=== PATIENT | male | born 1935 | race Caucasian/White ===

== ENCOUNTER 2019-04-14 08:33 | Inpatient (IN) ==
[2019-04-14 09:12] LABS: Basophils # (auto) 0.03 K/uL (0-0.2); Basophils % (auto) 0.2 %; Eosinophils # (auto) 0.16 K/uL (0-0.5); Eosinophils % (auto) 1.3 %; Hematocrit (blood only) 36.1 % (42-52); Hemoglobin 11.9 g/dL (14.0-18.0); Immature Granulocytes # (auto) 0.03 K/uL (0.00-0.02); Immature Granulocytes % (auto) 0.2 %; Mean Corpuscular Hemoglobin 27.9 pg (25-34); Mean Corpuscular Volume 84.5 fL (80-100); Mean Platelet Volume 11.2 fL (7.4-10.4); Monocytes # (auto) 0.64 K/uL (0.11-0.59); Neutrophils # (auto) 10.43 K/uL (1.4-6.5); Neutrophils % (auto) 82.3 %; Platelet Count 275 K/uL (130-400); RDW Coefficient of Variation 16.3 % (11.5-14.5); RDW Standard Deviation 49.4 fL (36.4-46.3); Red Blood Count 4.27 M/uL (4.7-6.1); White Blood Count 12.69 K/uL (4.8-10.8)
--- NOTE | 2019-04-14 09:27 | XRay Report ---
SINGLE VIEW CHEST CLINICAL HISTORY: Atypical chest pain. FINDINGS: An AP, portable, upright chest radiograph is compared to study dated 04/20/2013. The examin ation is degraded by portable technique and patient rotation. The cardiomediastinal silhouette is unr emarkable noting atherosclerotic calcification of the thoracic aorta. There is chronic elevation of t he right hemidiaphragm with bibasilar scarring/atelectasis. Chronic interstitial thickening is simila r to previous. Patchy airspace opacities are identified in the left upper lobe and possibly at the le ft lung base. No large pleural effusion or pneumothorax is seen. The skeletal structures are osteopen ic. The bony thorax is grossly intact. Degenerative change is noted in the shoulders and thoracic spi ne. IMPRESSION: There is patchy airspace consolidation identified in the left upper lobe and possibly at the left lung base. Correlate clinically for evidence of pneumonia/aspiration pneumonitis. Radiograph ic follow-up to resolution is recommended. Electronically signed by: Gigi Gomez M.D. 04/14/2019 9:26 AM
[2019-04-14] MEDS ORDERED: ASPIRIN CHEW 324 MG ONE (09:28)
[2019-04-14] MEDS ORDERED: NITROGLYCERIN SL 0.4 MG/TAB TAB ONE (09:28)
[2019-04-14 09:37] LABS: Albumin Globulin Ratio 0.7 (0.9-2); Albumin Level 2.9 gm/dl (3.4-5.0); BUN Creatinine Ratio 27.8 (10-20); Bilirubin,Total 0.4 mg/dl (0.2-1); Creatinine Clr Calc Pharmacy 45.5 ml/min; Est GFR (African American) 52.4; Est GFR (Non-African American) 45.2; Globulin 4.1 gm/dl (2.5-4.0); Potassium 5.2 mmol/L (3.5-5.1); Troponin I 2.31 ng/ml (0-0.045)
[2019-04-14] MEDS ORDERED: HEPARIN (PORCINE) 1000 UNIT/ML 10 ML (CATH LAB USE ONLY) ONE (09:45)
[2019-04-14] MEDS ORDERED: NiCARDipine HCL INJ 2.5 MG/ML 10 ML AMP ONE (09:45)
[2019-04-14] MEDS ORDERED: fentaNYL citrate 100 MCG/2 ML VIAL ONE (09:45)
[2019-04-14] MEDS ORDERED: MIDAZOLAM HCL 1 MG/ML 2ML VIAL ONE (09:45)
[2019-04-14] MEDS ORDERED: NITROGLYCERIN/D5W 100MCG/ML 20ML SYR ONE (09:46)
[2019-04-14 09:48] LABS: Beta-Hydroxybutyrate 2.79 mg/dl (0.2-2.81)
[2019-04-14] MEDS ORDERED: HEPARIN 25000 UNIT/500 ML D5W IV ONE (10:37)
[2019-04-14] MEDS ORDERED: ICU PROTOCOL FOR HYPERGLYCEMIA PRN ×2 (11:05→12:35)
[2019-04-14] MEDS ORDERED: Heparin IV Low Dose *NO* Bolus IV ONE (11:07)
--- NOTE | 2019-04-14 11:08 | Pre Anesthesia Assessment ---
Date of Service April 14, 2019 Pre Sedation Assessment Vital Signs Temp Pulse Pulse Resp BP BP Pulse Ox 04/14/19 09:59 97.7 F 88 14 105/58 L 97 04/14/19 09:57 87 14 105/58 L 97 04/14/19 09:51 84 14 96 04/14/19 09:50 85 16 103/66 96 04/14/19 09:46 82 82 20 108/59 L 95 04/14/19 09:45 83 13 108/59 L 94 04/14/19 09:42 90 04/14/19 09:41 81 19 108/59 L 94 04/14/19 09:40 84 20 97/62 L 92 04/14/19 09:39 84 26 H 82/56 L 91 04/14/19 09:37 83 16 92 04/14/19 09:36 83 19 89/44 L 93 04/14/19 09:35 85 23 88/45 L 93 04/14/19 09:33 83 18 95 04/14/19 09:32 85 14 118/67 96 04/14/19 09:31 87 17 04/14/19 09:30 78 81 18 113/63 113/63 96 04/14/19 09:25 82 18 96 04/14/19 09:20 82 17 97 04/14/19 09:15 85 15 98 04/14/19 09:10 85 16 97 04/14/19 09:05 81 16 97 04/14/19 09:00 83 16 106/75 98 04/14/19 08:58 94 04/14/19 08:55 79 13 98 04/14/19 08:51 97.7 F 83 18 104/58 L 94 04/14/19 08:50 84 16 97 04/14/19 08:45 84 22 97 04/14/19 08:44 86 19 98 04/14/19 08:41 85 15 122/68 98 Cardiovascular RRR, no murmur, no edema Respiratory normal respiratory effort, lungs clear to auscultation Pre-Sedation Airway Assessment Smoking Status: Never smoker Hx Sleep Apnea: No Hx Difficult Intubation: No Short, Thick Neck: No Thyromental Distance: < 3.5 Finger Breadths Oral Cavity: + WNL Mallampati Class: III ASA: ASA4 Procedure Planning Contraindications for Sedation: none Current Medications Reviewed: Yes Notes The planned sedation has been discussed with the patient. Informed Consent was obtained. I have identified the patient, determined the appropriateness of sedation and have assessed the patient immediately prior to the procedure. All medicine(s) and interventions are by my order.
--- NOTE | 2019-04-14 11:09 | Post Anesthesia Assessment ---
Date of Service April 14, 2019 Post Sedation Assessment Vital Signs Temp Pulse Pulse Resp BP BP Pulse Ox 04/14/19 09:59 97.7 F 88 14 105/58 L 97 04/14/19 09:57 87 14 105/58 L 97 04/14/19 09:51 84 14 96 04/14/19 09:50 85 16 103/66 96 04/14/19 09:46 82 82 20 108/59 L 95 04/14/19 09:45 83 13 108/59 L 94 04/14/19 09:42 90 04/14/19 09:41 81 19 108/59 L 94 04/14/19 09:40 84 20 97/62 L 92 04/14/19 09:39 84 26 H 82/56 L 91 04/14/19 09:37 83 16 92 04/14/19 09:36 83 19 89/44 L 93 04/14/19 09:35 85 23 88/45 L 93 04/14/19 09:33 83 18 95 04/14/19 09:32 85 14 118/67 96 04/14/19 09:31 87 17 04/14/19 09:30 78 81 18 113/63 113/63 96 04/14/19 09:25 82 18 96 04/14/19 09:20 82 17 97 04/14/19 09:15 85 15 98 04/14/19 09:10 85 16 97 04/14/19 09:05 81 16 97 04/14/19 09:00 83 16 106/75 98 04/14/19 08:58 94 04/14/19 08:55 79 13 98 04/14/19 08:51 97.7 F 83 18 104/58 L 94 04/14/19 08:50 84 16 97 04/14/19 08:45 84 22 97 04/14/19 08:44 86 19 98 04/14/19 08:41 85 15 122/68 98 Recovery Score Activity: Moves 4 extremities Respiration: Deep Breath/Cough Circulation: +/-20% PreAnes Value Consciousness: Fully Awake Oxygen Saturation: O2 needed for >90% Discharge Sedation Level of Care: Higher Level of Care Post Sedation Plan On clinical assessment, the patient appears to have tolerated the sedation without complications. Patient is recovering as anticipated. Patient will continue to be monitored by nursing and may be discharged when sedation discharge criteria are met per below protocol. Upon Completions of procedure up to 15 minutes continue every 5 minute vital signs and the P.A.R. score; then discharge to a Phase I or Fast Track to Phase II per the following guidelines: * Discharge Patient to appropriate Phase II area if PAR is 8 or greater or return to pre- procedure baseline. The post - procedure orders will be as directed. * If PAR score is less than 8 or not return to pre-procedure baseline then patient will follow Phase I monitoring till PAR is reached for Phase II. The Phase I may be done in procedure room or may call to secure a Phase I area. * If naloxone or flumazenil are used for reversal, hold in Phase I for continued monitoring from when last reversal dose was given for a minimum of 60 minutes or longer pending the nurse and/or physician discretion of patient condition before discharge to Phase II. Please call the Sedation Physician to re-evaluate and complete post-note for discharge to Phase II area. Do NOT discharge from procedure sedation or Phase 1 until post- sedation evaluation note is complete by procedure /sedation MD Sedation Discharge Instructions to be given to the patient at discharge to home.
[2019-04-14] MEDS ORDERED: GLUCOSE 40% GEL 15 GM TUBE PO PRN (11:11)
[2019-04-14] MEDS ORDERED: DEXTROSE 50% 50 ML SYRINGE IV PRN (11:11)
[2019-04-14] MEDS ORDERED: GLUCAGON FOR INJ 1 MG VIAL SQ PRN (11:11)
[2019-04-14] MEDS ORDERED: CARBOHYDRATES FOR HYPOGLYCEMIA PO PRN (11:11)
[2019-04-14] MEDS ORDERED: GLUCOSE 10 TABS/TUBE PO PRN (11:11)
[2019-04-14] MEDS ORDERED: HEPARIN SODIUM/DEXTROSE 25,000 UNITS/500 ML BAG IV SCH (11:15)
--- NOTE | 2019-04-14 11:19 | Cardiology Consultation ---
Date of Consultation April 14, 2019 Assessment & Plan (1) Coronary arteriosclerosis in [place] artery: (2) Non-STEMI (non-ST elevated myocardial infarction): (3) Seizure disorder: (4) Status post below knee amputation: (5) Status post carotid endarterectomy: (6) CHF (congestive heart failure), NYHA class II: The patient will be admitted to the ICU with an intra-aortic balloon pump. According to our records on [facility] he has been a DNR in the past. I had a long discussion with the patient's . He would be a very difficult operation and his short and long-term prognosis after open heart surgery would be poor. They would like to have him admitted here and stabilized. They are interested in having palliative care see him to help with goals and decisions. I believe that this is not an unreasonable approach to this elderly patient with severe vascular disease. History of Present Illness Attending Physician: Joby Bentley MD History of Present Illness This is an 83-year-old male patient with a history of diabetes, below the knee amputation and previous stroke. Most of his care has been done through his [facility] primary care physician. He was last seen in our practice in 2012. Review of his [facility] chart would indicate no hospital admissions at [facility] facility, so I believe most of his hospital admissions have been through [facility]. According to his who cares for him he has a hospital bed on the first floor of their home. Over the past several weeks he has been difficult to manage because of ongoing chest pain and shortness of breath. He was brought to the emergency department by his . His cardiac troponins were elevated at 2.3 and he was taken to the cardiac catheterization lab for an emergent study. That study revealed severe three-vessel coronary artery disease. An intra-aortic balloon pump was placed. He is now admitted to the ICU. Allergies Allergy/AdvReac Type Severity Reaction Status Date / Time morphine AdvReac Severe NAUSEA Verified 04/14/19 09:37 Home Medications Home Medications Medication Instructions Recorded Confirmed Type carvedilol [Coreg] 3.125 mg PO BID #0 tab 08/31/12 04/14/19 History insulin glargine [Lantus Solostar 12 unit SUBCUT HS #0 vial 08/31/12 04/14/19 History U-100 Insulin] insulin lispro [Humalog KwikPen 2 unit SUBCUT DIRECTED PRN #0 08/31/12 04/14/19 History Insulin] btl melatonin 3 mg PO HS #0 12/19/12 04/14/19 History aspirin [Aspirin Low Dose] 81 mg PO DAILY #0 02/27/13 04/14/19 History levetiracetam [Keppra] 750 mg PO BID #0 tab 04/11/13 04/14/19 History lorazepam [Ativan] 0.25 - 0.5 mg PO HS PRN #0 tab 04/11/13 04/14/19 History atorvastatin [Lipitor] 80 mg PO HS #0 tab 04/18/13 04/14/19 History lisinopril [Prinivil] 5 mg PO QAM #0 tab 04/22/13 04/14/19 History diphenhydramine-acetaminophen 1 tab PO HS PRN 04/14/19 04/14/19 History [Tylenol PM Extra Strength] duloxetine 30 mg PO DAILY 04/14/19 04/14/19 History furosemide [Lasix] 20 mg PO DAILY 04/14/19 04/14/19 History hydrocodone-acetaminophen 1 tab PO Q6H PRN 04/14/19 04/14/19 History metformin 1,000 mg PO DAILY 04/14/19 04/14/19 History ondansetron HCl [Zofran] 4 - 8 mg PO DIRECTED PRN 04/14/19 04/14/19 History Patient History Social History Preferred Language: Cuban Communication Ability: Effective Assistant Bookkeeper Required: No Beliefs That Will Affect Care: None Current Living Situation: Spouse Feels Safe at Home: Yes Smoking Status: Former smoker Hx Alcohol Use: No Hx Substance Use: No Review of Systems Review of Systems: Unobtainable due to reduced consciousness Physical Exam Physical Exam: General: no acute distress and stated age Head: normocephalic, no masses, lesions, tenderness or abnormalities Eyes: conjunctiva are pink and non-injected, sclera clear Neck: supple, no adenopathy, no bruits, normal jugular venous pulse, no hepatojugular reflux Chest: normal shape and normal respiratory effort Lungs: clear to auscultation and percussion Cardiac Exam: - regular rate & rhythm, no murmurs gallops or rubs - normal S1, normal S2 Pulses: 2(+) throughout Abdomen: abdomen soft, non-tender, no abnormal masses and no hepatosplenomegaly Musculoskeletal: no gait disturbance, no joint inflammation, no deforming arthritis Extremities: Left below the knee amputation. Neuro: grossly normal exam Results & Data Vital Signs (Past 12 Hours) Vital Signs Temp Pulse Pulse Resp BP BP Pulse Ox 04/14/19 09:59 36.5 C 88 14 105/58 L 97 04/14/19 09:57 87 14 105/58 L 97 04/14/19 09:51 84 14 96 04/14/19 09:50 85 16 103/66 96 04/14/19 09:46 82 82 20 108/59 L 95 04/14/19 09:45 83 13 108/59 L 94 04/14/19 09:42 90 04/14/19 09:41 81 19 108/59 L 94 04/14/19 09:40 84 20 97/62 L 92 04/14/19 09:39 84 26 H 82/56 L 91 04/14/19 09:37 83 16 92 04/14/19 09:36 83 19 89/44 L 93 04/14/19 09:35 85 23 88/45 L 93 04/14/19 09:33 83 18 95 04/14/19 09:32 85 14 118/67 96 04/14/19 09:31 87 17 04/14/19 09:30 78 81 18 113/63 113/63 96 04/14/19 09:25 82 18 96 04/14/19 09:20 82 17 97 04/14/19 09:15 85 15 98 04/14/19 09:10 85 16 97 04/14/19 09:05 81 16 97 04/14/19 09:00 83 16 106/75 98 04/14/19 08:58 94 04/14/19 08:55 79 13 98 04/14/19 08:51 36.5 C 83 18 104/58 L 94 04/14/19 08:50 84 16 97 04/14/19 08:45 84 22 97 04/14/19 08:44 86 19 98 04/14/19 08:41 85 15 122/68 98 Laboratory Results Laboratory Results - last 24 hr 04/14/19 04/14/1904/14/19 08:45 08:45 08:51 WBC 12.69 H RBC 4.27 L Hgb 11.9 L Hct 36.1 L MCV 84.5 MCH 27.9 MCHC 33.0 RDW Std Deviation 49.4 H RDW Coeff of Roderick 16.3 H Plt Count 275 MPV 11.2 H Immature Gran % (Auto) 0.2 Neut % (Auto) 82.3 Lymph % (Auto) 11.0 [place] % (Auto) 5.0 Eos % (Auto) 1.3 Baso % (Auto) 0.2 Immature Gran # (Auto) 0.03 H Neut # (Auto) 10.43 H Lymph # (Auto) 1.40 [place] # (Auto) 0.64 H Eos # (Auto) 0.16 Baso # (Auto) 0.03 Sodium 135 L Potassium 5.2 H Chloride 100 Carbon Dioxide 26 Anion Gap 9.0 BUN 40 H Creatinine 1.44 H Est Cr Clr Drug Dosing 45.5 Est GFR ( Amer) 52.4 Est GFR (Non-Af Amer) 45.2 BUN/Creatinine Ratio 27.8 H Glucose 365 H* Calcium 9.0 Total Bilirubin 0.4 AST 33 ALT 24 Alkaline Phosphatase 150 H POC Troponin I 1.85 H Troponin I 2.310 H* Total Protein 7.0 Albumin 2.9 L Globulin 4.1 H Albumin/Globulin Ratio 0.7 L Lipase 366 Beta-Hydroxybutyric Acd 2.79 Medications Administered Current Inpatient Medications Heparin Sodium/Dextrose () 1 ea IV ONE ONE; Protocol Stop: 04/14/19 11:08 Heparin Sodium/Dextrose (Heparin Sodium/Dextrose) 25,000 units in 500 mls @ 0.02 mls/hr IV .Q24H [facility]; Protocol Stop: 05/14/19 11:14
--- NOTE | 2019-04-14 11:28 | Cardiac Catheterization ---
[facility] Data: Toolroom Attendant Cardiac Status Clinical evaluation leading to the procedure CAD Presenation: Non STEMI Anginal Classification: CCS IV Heart Failure: No Cardiogenic Shock within 24 Hours: No Cardiac Arrest within 24 Hours: No Imaging Studies Past 6 Months: Yes Stress Studies Past 6 Months: No Diagnostic Physicians Name: Joby Bentley MD Status: Emergency Closure Device Percutaneous Entry Location: Radial Closure Device: Radial Band Recommendations: Medical Therapy and/or Counseling Intraprocedure Events Significant Disection: No Perforation: No Cardiac Cath Procedure Full Procedure Date April 14, 2019 Pre-Procedure Diagnosis Pre-Procedure Diagnosis: Non STEMI AUC Score AUC Score: 8 Post-Procedure Diagnosis Post-Procedure Diagnosis: Severe CAD and Elevated Intracardiac Pressures Procedure(s) Performed Procedure(s) Performed: Coronary Angiography, Left Heart Cath, IABP and Ultrasound Guided Vascular Access Director Validation Joby Bentley MD Gaming Cage Cashier(s) Riya Estimated Blood Loss Estimated Blood Loss: 10 Medication(s) Medication(s): Fentanyl, Heparin, Lidocaine 1%, Nicardipine and Versed Summary of Findings Indication: High-risk ACS Access: 6Fr right radial artery under ultrasound guidance. 8Fr left IN HOME AIDE access under ultrasound guidance. Findings: LM - Calcified 90+% ostial to bifurcation disease. LAD - Calcified, 90% ostial stenosis, moderat proximal disease, 90% mid stenosis at take-off of 2nd diagonal. Diffuse distal mild disease with TIMI2-3 flow. Medium caliber 2nd diagonal with moderate proximal disease. Circumflex - Calcified, small caliber, 95% ostial stenosis. RCA- Calcified, occluded proximally. PDA/PLBs fill retrograde vial left to right collaterals. LVEDP - 27 -- IABP placement -- - Heparin administered - Left IN HOME AIDE access under ultrasound guidance and with micropuncture - IABP placed to level of derrell - Appropriate augmentation at 1:1. Impression: 1. Critical, complex 3 vessel coronary artery disease with ostial left main involvement. - 90+% left main - 90% ostial LAD, mid LAD - 95% ostial circumflex - 100% chronically occluded proximal RCA with left to right collaterals. 2. Elevated LVEDP 27 mmHg Summary: Patient with critical, high risk disease but TIMI2-3 flow throughout coronary system. In the setting of ongoing chest pain, elevated filling pressures an IABP was placed. Chest pain free post procedure. Patient with extensive co-morbidities and unlikely to be a candidate for CABG. Will be admitted to ICU. Further discussion with family/palliative care regarding medical management vs transfer to tertiary center for high risk PCI. Hemodynamics Rest Ao:: 114/50/70 Final Ao: 111/53/75 LV: 110/27 Recommendations Recommendations: Medical Therapy and/or Counseling Specimens Specimens: None Radiation Exposure (mGy) 1060 Contrast (mls) 50 Fluids (cc crystalloids) Fluids (cc crystalloids): 50 Drains Drains: none Anesthesia moderate Procedural Complication(s) None Disposition ICU I attest to the content of the Intraoperative Record and any orders documented therein. Any exceptions are noted below.
--- NOTE | 2019-04-14 12:12 | Emergency Department Note ---
Entered by Gareth Nowak acting as a scribe for Jefe Rose MD History of Present Illness General Chief complaint: Shortness of Breath/Dyspnea Stated complaint: SOB, CHEST DISCOMFORT Time Seen by Provider: 04/14/19 08:41 Source: patient Mode of arrival: ambulatory Limitations: physical limitation (left leg amputation) History of Present Illness Onset (ago): day(s) (last night) Location: chest Severity: similar to prior episodes Pain Consistency: + intermittent Quality: + burning Exacerbated By: + movement Associated symptoms: + denies other symptoms, + shortness of breath and + other (chest pain, shortness of breath) Treatments prior to arrival: other (Vicodin, oxygen) The patient is a 83 year old male who presents to the Emergency Room with complaints of an episode of intermittent chest pain that occurred last night. The patient reports that he started to feel short of breath at 1930 last night. The patient notes that he has had chest pain for a while but that this episode was the worst yet. He notes that it hurts to breath and that he has an associated cough. The patient notes that the pain radiates into his left arm. The patients notes that he was able to fall asleep yesterday but that he was woken up this morning due to the chest pain. The patients reports that when the patient has difficulty breathing, it turns into a panic and his pain is increased through his chest. The patient reports that the chest pain is better the morning versus the night. The patient notes that he feels relief with lying down versus standing. 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 He reports that he has had no issues with weight loss or weight gain. The patient states that that he took Vicodin for the pain this morning as well as Aspirin. The nurse notes that he was started on 2L of O2, and then was increased to 3L. The nurse states that he is currently at 92% on room air. The patient additionally states that he uses Lasix as prescribed by Dr. Wolf. Home Medications Home Medications Medication Instructions Recorded Confirmed Type carvedilol [Coreg] 3.125 mg PO BID #0 tab 08/31/12 04/14/19 History insulin glargine [Lantus Solostar 12 unit SUBCUT HS #0 vial 08/31/12 04/14/19 History U-100 Insulin] insulin lispro [Humalog KwikPen 2 unit SUBCUT DIRECTED PRN #0 08/31/12 04/14/19 History Insulin] btl melatonin 3 mg PO HS #0 12/19/12 04/14/19 History aspirin [Aspirin Low Dose] 81 mg PO DAILY #0 02/27/13 04/14/19 History levetiracetam [Keppra] 750 mg PO BID #0 tab 04/11/13 04/14/19 History lorazepam [Ativan] 0.25 - 0.5 mg PO HS PRN #0 tab 04/11/13 04/14/19 History atorvastatin [Lipitor] 80 mg PO HS #0 tab 04/18/13 04/14/19 History lisinopril [Prinivil] 5 mg PO QAM #0 tab 04/22/13 04/14/19 History diphenhydramine-acetaminophen 1 tab PO HS PRN 04/14/19 04/14/19 History [Tylenol PM Extra Strength] duloxetine 30 mg PO DAILY 04/14/19 04/14/19 History furosemide [Lasix] 20 mg PO DAILY 04/14/19 04/14/19 History hydrocodone-acetaminophen 1 tab PO Q6H PRN 04/14/19 04/14/19 History metformin 1,000 mg PO DAILY 04/14/19 04/14/19 History ondansetron HCl [Zofran] 4 - 8 mg PO DIRECTED PRN 04/14/19 04/14/19 History Allergies Allergy/AdvReac Type Severity Reaction Status Date / Time morphine AdvReac Severe NAUSEA Verified 04/14/19 09:37 Past Med/Surg History Social History Preferred Language: Jordanian Communication Ability: Effective Information Resources Director Required: No Beliefs That Will Affect Care: None Current Living Situation: Spouse Other Information That Helps Us Care for You: No Feels Safe at Home: Yes Safety Concerns: Feels Safe At This Time Smoking Status: Former smoker Hx Alcohol Use: No Hx Substance Use: No Review of Systems See HPI for pertinent positives & negatives. and A total of 10 systems reviewed and were otherwise negative Physical Exam Vital Signs Vital Signs - 24 hr 04/14/19 08:41 04/14/19 08:44 04/14/19 08:45 Temperature Temperature Source Pulse Rate 85 86 84 Pulse Rate [Left Finger] Pulse Rate from SpO2 Sensor 85 85 84 Pulse Rhythm [Left Finger] Respiratory Rate 15 19 22 Respiratory Effort / Characteristics Respiratory Pattern Blood Pressure 122/68 Blood Pressure [Right Arm] Blood Pressure Mean 78 Blood Pressure Mean [Right Arm] Blood Pressure Position [Right Arm] Pulse Oximetry 98 98 97 Oxygen Delivery Method Oxygen Flow Rate Sepsis Recent Fever Within 48 Hours Sepsis New/Unexplained Change in Mental Status Sepsis Action Taken by Nursing Oxygen Flow Rate - Titration Pulse Oximetry Post Tiitration 04/14/19 08:50 04/14/19 08:51 04/14/19 08:55 Temperature 36.5 C Temperature Source Oral Pulse Rate 84 83 79 Pulse Rate [Left Finger] Pulse Rate from SpO2 Sensor 84 81 Pulse Rhythm [Left Finger] Respiratory Rate 16 18 13 Respiratory Effort / Characteristics Respiratory Pattern Blood Pressure 104/58 L Blood Pressure [Right Arm] Blood Pressure Mean 73 Blood Pressure Mean [Right Arm] Blood Pressure Position [Right Arm] Pulse Oximetry 97 94 98 Oxygen Delivery Method Nasal Cannula Oxygen Flow Rate 2 Sepsis Recent Fever Within 48 Hours No Sepsis New/Unexplained Change in Mental Status No Sepsis Action Taken by Nursing No Action Required Oxygen Flow Rate - Titration Pulse Oximetry Post Tiitration 04/14/19 08:58 04/14/19 09:00 04/14/19 09:05 Temperature Temperature Source Pulse Rate 83 81 Pulse Rate [Left Finger] Pulse Rate from SpO2 Sensor 83 81 Pulse Rhythm [Left Finger] Respiratory Rate 16 16 Respiratory Effort / Characteristics Respiratory Pattern Blood Pressure 106/75 Blood Pressure [Right Arm] Blood Pressure Mean 84 Blood Pressure Mean [Right Arm] Blood Pressure Position [Right Arm] Pulse Oximetry 94 98 97 Oxygen Delivery Method Nasal Cannula Oxygen Flow Rate 2 Sepsis Recent Fever Within 48 Hours Sepsis New/Unexplained Change in Mental Status Sepsis Action Taken by Nursing Oxygen Flow Rate - Titration Pulse Oximetry Post Tiitration 04/14/19 09:10 04/14/19 09:15 04/14/19 09:20 Temperature Temperature Source Pulse Rate 85 85 82 Pulse Rate [Left Finger] Pulse Rate from SpO2 Sensor 86 85 82 Pulse Rhythm [Left Finger] Respiratory Rate 16 15 17 Respiratory Effort / Characteristics Respiratory Pattern Blood Pressure Blood Pressure [Right Arm] Blood Pressure Mean Blood Pressure Mean [Right Arm] Blood Pressure Position [Right Arm] Pulse Oximetry 97 98 97 Oxygen Delivery Method Oxygen Flow Rate Sepsis Recent Fever Within 48 Hours Sepsis New/Unexplained Change in Mental Status Sepsis Action Taken by Nursing Oxygen Flow Rate - Titration Pulse Oximetry Post Tiitration 04/14/19 09:25 04/14/19 09:30 04/14/19 09:31 Temperature Temperature Source Pulse Rate 82 78 87 Pulse Rate [Left Finger] 81 Pulse Rate from SpO2 Sensor 83 Pulse Rhythm [Left Finger] Respiratory Rate 18 18 17 Respiratory Effort / Characteristics Respiratory Pattern Blood Pressure 113/63 Blood Pressure [Right Arm] 113/63 Blood Pressure Mean 87 Blood Pressure Mean [Right Arm] 79 Blood Pressure Position [Right Arm] Pulse Oximetry 96 96 Oxygen Delivery Method Nasal Cannula Oxygen Flow Rate 3 Sepsis Recent Fever Within 48 Hours Sepsis New/Unexplained Change in Mental Status Sepsis Action Taken by Nursing Oxygen Flow Rate - Titration Pulse Oximetry Post Tiitration 04/14/19 09:32 04/14/19 09:33 04/14/19 09:35 Temperature Temperature Source Pulse Rate 85 83 85 Pulse Rate [Left Finger] Pulse Rate from SpO2 Sensor 86 84 85 Pulse Rhythm [Left Finger] Respiratory Rate 14 18 23 Respiratory Effort / Characteristics Respiratory Pattern Blood Pressure 118/67 88/45 L Blood Pressure [Right Arm] Blood Pressure Mean 87 61 Blood Pressure Mean [Right Arm] Blood Pressure Position [Right Arm] Pulse Oximetry 96 95 93 Oxygen Delivery Method Oxygen Flow Rate Sepsis Recent Fever Within 48 Hours Sepsis New/Unexplained Change in Mental Status Sepsis Action Taken by Nursing Oxygen Flow Rate - Titration Pulse Oximetry Post Tiitration 04/14/19 09:36 04/14/19 09:37 04/14/19 09:39 Temperature Temperature Source Pulse Rate 83 83 84 Pulse Rate [Left Finger] Pulse Rate from SpO2 Sensor 83 83 84 Pulse Rhythm [Left Finger] Respiratory Rate 19 16 26 H Respiratory Effort / Characteristics Respiratory Pattern Blood Pressure 89/44 L 82/56 L Blood Pressure [Right Arm] Blood Pressure Mean 59 69 Blood Pressure Mean [Right Arm] Blood Pressure Position [Right Arm] Pulse Oximetry 93 92 91 Oxygen Delivery Method Oxygen Flow Rate Sepsis Recent Fever Within 48 Hours Sepsis New/Unexplained Change in Mental Status Sepsis Action Taken by Nursing Oxygen Flow Rate - Titration Pulse Oximetry Post Tiitration 04/14/19 09:40 04/14/19 09:41 04/14/19 09:42 Temperature Temperature Source Pulse Rate 84 81 Pulse Rate [Left Finger] Pulse Rate from SpO2 Sensor 83 81 Pulse Rhythm [Left Finger] Respiratory Rate 20 19 Respiratory Effort / Characteristics Respiratory Pattern Blood Pressure 97/62 L 108/59 L Blood Pressure [Right Arm] Blood Pressure Mean 70 75 Blood Pressure Mean [Right Arm] Blood Pressure Position [Right Arm] Pulse Oximetry 92 94 90 Oxygen Delivery Method Nasal Cannula Nasal Cannula Oxygen Flow Rate 3 2 Sepsis Recent Fever Within 48 Hours Sepsis New/Unexplained Change in Mental Status Sepsis Action Taken by Nursing Oxygen Flow Rate - Titration 3 Pulse Oximetry Post Tiitration 93 04/14/19 09:45 04/14/19 09:46 04/14/19 09:50 Temperature Temperature Source Pulse Rate 83 82 85 Pulse Rate [Left Finger] 82 Pulse Rate from SpO2 Sensor 84 82 84 Pulse Rhythm [Left Finger] Regular Respiratory Rate 13 20 16 Respiratory Effort / Characteristics Spontaneous SOB on Exertion Respiratory Pattern Regular Blood Pressure 108/59 L 103/66 Blood Pressure [Right Arm] 108/59 L Blood Pressure Mean 76 78 Blood Pressure Mean [Right Arm] 75 Blood Pressure Position [Right Arm] Lying Pulse Oximetry 94 95 96 Oxygen Delivery Method Nasal Cannula Oxygen Flow Rate 3 Sepsis Recent Fever Within 48 Hours Sepsis New/Unexplained Change in Mental Status Sepsis Action Taken by Nursing Oxygen Flow Rate - Titration Pulse Oximetry Post Tiitration 04/14/19 09:51 04/14/19 09:55 04/14/19 09:57 Temperature Temperature Source Pulse Rate 84 86 Pulse Rate [Left Finger] 87 Pulse Rate from SpO2 Sensor 84 87 Pulse Rhythm [Left Finger] Regular Respiratory Rate 14 13 14 Respiratory Effort / Characteristics Spontaneous SOB on Exertion Respiratory Pattern Regular Blood Pressure 105/58 L Blood Pressure [Right Arm] 105/58 L Blood Pressure Mean 68 Blood Pressure Mean [Right Arm] 73 Blood Pressure Position [Right Arm] Lying Pulse Oximetry 96 97 97 Oxygen Delivery Method Nasal Cannula Oxygen Flow Rate 3 Sepsis Recent Fever Within 48 Hours Sepsis New/Unexplained Change in Mental Status Sepsis Action Taken by Nursing Oxygen Flow Rate - Titration Pulse Oximetry Post Tiitration 04/14/19 09:59 04/14/19 11:50 04/14/19 11:57 Temperature 36.5 C Temperature Source Oral Pulse Rate 88 90 75 Pulse Rate [Left Finger] Pulse Rate from SpO2 Sensor Pulse Rhythm [Left Finger] Respiratory Rate 14 9 L 18 Respiratory Effort / Characteristics Respiratory Pattern Blood Pressure 105/58 L 154/70 H Blood Pressure [Right Arm] Blood Pressure Mean 94 Blood Pressure Mean [Right Arm] Blood Pressure Position [Right Arm] Pulse Oximetry 97 97 Oxygen Delivery Method Nasal Cannula Oxygen Flow Rate 3 Sepsis Recent Fever Within 48 Hours Sepsis New/Unexplained Change in Mental Status Sepsis Action Taken by Nursing Oxygen Flow Rate - Titration Pulse Oximetry Post Tiitration 04/14/19 12:00 04/14/19 12:15 Temperature 36.7 C Temperature Source Pulse Rate 80 77 Pulse Rate [Left Finger] Pulse Rate from SpO2 Sensor 92 H Pulse Rhythm [Left Finger] Respiratory Rate 16 16 Respiratory Effort / Characteristics Respiratory Pattern Blood Pressure Blood Pressure [Right Arm] Blood Pressure Mean Blood Pressure Mean [Right Arm] Blood Pressure Position [Right Arm] Pulse Oximetry 86 L 97 Oxygen Delivery Method Oxygen Flow Rate Sepsis Recent Fever Within 48 Hours Sepsis New/Unexplained Change in Mental Status Sepsis Action Taken by Nursing Oxygen Flow Rate - Titration Pulse Oximetry Post Tiitration General:Chronically-ill appearing older male in no acute distress. Supplemental oxygen. HEENT: Normal cephalic atraumatic. Pupils are equal round and reactive to light. Extraocular movements are intact. Oropharynx is pink with moist mucous membranes. No swelling of the mouth lips or tongue. Neck: Supple with a midline trachea. No meningeal signs or stiffness, no JVD or bruits. No Stridor. Chest: Clear to auscultation bilaterally. No wheezes or rhonchi. No increased work of breathing. Heart: regular rate and rhythm. Abdomen: Soft nontender, nondistended without rebound guarding or rigidity. Extremities: Artificial lower left leg. No cyanosis clubbing or edema. No calf tenderness Spine/Back. Non tender to palpation. No CVA tenderness Skin: Good turgor without rashes. Neurologic exam: Cranial nerves two through 12 are intact. Motor and sensation are intact and symmetrical throughout. Course Course 0841: The patient was evaluated in room B02. A complete history and physical exam was performed. 0924: I checked up on the patient and he was resting comfortaably. 0946: The patient appears comfortable and Dr. Bentley, cardiology, is at bedside. 0952: The patient agreed to treatment and will be taken to the [facility]. 1040: I consulted Dr. Chen Administered Medications Heparin Sodium/Dextrose (Heparin Sodium/Dextrose) 25,000 units in 500 mls @ 20 mls/hr IV .Q24H [facility]; Protocol Stop: 05/14/19 11:14 Last Admin: 04/14/19 11:30 Dose: 1,000 units/hr, 20 mls/hr Documented by: [id number] Cosigned by: [id number] Insulin Aspart (Novolog Flexpen) 0 units SC ACHS [facility] Stop: 05/14/19 12:59 Last Admin: 04/14/19 13:10 Dose: 5 units Documented by: [id number] Cosigned by: [id number] Insulin Glargine (Lantus Solostar Pen) 12 units SQ HS [facility] Stop: 05/14/19 12:59 Last Admin: 04/14/19 13:06 Dose: 12 units Documented by: [id number] Cosigned by: [id number] Discontinued Medications Aspirin (Aspirin) Confirm Administered Dose 324 mg .ROUTE .STK-MED ONE Stop: 04/14/19 09:29 Last Admin: 04/14/19 09:28 Dose: 324 mg Documented by: [id number] Fentanyl Citrate (Fentanyl Citrate) Confirm Administered Dose 100 mcg .ROUTE .STK-MED ONE Stop: 04/14/19 09:46 Last Admin: 04/14/19 12:25 Dose: 50 mcg Documented by: [id number] Heparin Sodium (Porcine) (Heparin Iv Bolus ([facility] [employer] [facility] Use Only)) Confirm Administered Dose 10,000 units .ROUTE .STK-MED ONE Stop: 04/14/19 09:46 Last Admin: 04/14/19 12:26 Dose: 8,000 units Documented by: [id number] Heparin Sodium/Dextrose (Heparin Sodium/Dextrose) Confirm Administered Dose 25,000 units IV .STK-MED ONE Stop: 04/14/19 10:38 Last Admin: 04/14/19 12:51 Dose: Not Given Documented by: [id number] Heparin Sodium/Sodium Chloride (Heparin/Nss 1000 Unit/500ml Flush Bag) Confirm Administered Dose 3,000 units IV .STK-MED ONE Stop: 04/14/19 09:46 Last Admin: 04/14/19 12:27 Dose: 3,000 units Documented by: [id number] Insulin Human Regular 4 units/ (Syringe) 4 mls @ 8 mls/min IV TODAY@1300 ONE Stop: 04/14/19 13:01 Last Admin: 04/14/19 13:06 Dose: 8 mls/min Documented by: [id number] Cosigned by: [id number] Midazolam HCl (Versed) Confirm Administered Dose 2 mg .ROUTE .STK-MED ONE Stop: 04/14/19 09:46 Last Admin: 04/14/19 12:27 Dose: 1 mg Documented by: [id number] Nicardipine HCl (Cardene) Confirm Administered Dose 25 mg .ROUTE .STK-MED ONE Stop: 04/14/19 09:46 Last Admin: 04/14/19 12:22 Dose: 25 mg Documented by: [id number] Nitroglycerin (Nitrostat) Confirm Administered Dose 0.4 mg .ROUTE .STK-MED ONE Stop: 04/14/19 09:29 Last Admin: 04/14/19 09:30 Dose: 0.4 mg Documented by: [id number] Nitroglycerin/Dextrose (Nitroglycerin/D5w 100 Mcg/Ml 20ml Syringe) Confirm Admin istered Dose 2,000 mcg .ROUTE .STK-MED ONE Stop: 04/14/19 09:47 Last Admin: 04/14/19 12:28 Dose: 2,000 mcg Documented by: [id number] Critical Care Time Critical Care Time: Yes Total Critical Care Time: 45 I have personally spent 45 minutes of critical care time in the direct management of this patient. This includes bedside care, interpretation of diagnostic studies, and testing, discussion with consultants, patient, and family members, and other required patient management activities. This 45 minutes is in excess of all separately billable procedures. Medical Decision Making Differential Diagnosis Acute coronary syndrome, CHF, pneumonia, electrolyte imbalance, metabolic abnormalities Medical Records Attestation: I reviewed the patient's medical records. Home Medications Current Medication List: was personally reviewed by me Laboratory Data Attestation: I reviewed the patient's lab results. Result diagrams: 04/14/19 08:45 04/14/19 08:45 Lab Results 04/14/19 04/14/19 04/14/19 Range/Units 08:45 08:45 08:51 WBC 12.69 H (4.8-10.8) K/uL RBC 4.27 L (4.7-6.1) M/uL Hgb 11.9 L (14.0-18.0) g/dL Hct 36.1 L (42-52) % MCV 84.5 (80-100) fL MCH 27.9 (25-34) pg MCHC 33.0 (32-36) g/dL RDW Std Deviation 49.4 H (36.4-46.3) fL RDW Coeff of Roderick 16.3 H (11.5-14.5) % Plt Count 275 (130-400) K/uL MPV 11.2 H (7.4-10.4) fL Immature Gran % (Auto) 0.2 % Neut % (Auto) 82.3 % Lymph % (Auto) 11.0 % Benzie % (Auto) 5.0 % Eos % (Auto) 1.3 % Baso % (Auto) 0.2 % Immature Gran # (Auto) 0.03 H (0.00-0.02) K/uL Neut # (Auto) 10.43 H (1.4-6.5) K/uL Lymph # (Auto) 1.40 (1.2-3.4) K/uL Benzie # (Auto) 0.64 H (0.11-0.59) K/uL Eos # (Auto) 0.16 (0-0.5) K/uL Baso # (Auto) 0.03 (0-0.2) K/uL Sodium 135 L (136-145) mmol/L Potassium 5.2 H (3.5-5.1) mmol/L Chloride 100 (98-107) mmol/L Carbon Dioxide 26 (21-32) mmol/L Anion Gap 9.0 (3-11) BUN 40 H (7-18) mg/dl Creatinine 1.44 H (0.6-1.4) mg/dl Est Cr Clr Drug Dosing 45.5 ml/min Est GFR ( Amer) 52.4 Est GFR (Non-Af Amer) 45.2 BUN/Creatinine Ratio 27.8 H (10-20) Glucose 365 H* (70-99) mg/dl Calcium 9.0 (8.5-10.1) mg/dl Total Bilirubin 0.4 (0.2-1) mg/dl AST 33 (15-37) U/L ALT 24 (12-78) U/L Alkaline Phosphatase 150 H (45-117) U/L POC Troponin I 1.85 H (0-0.045) ng/ml Troponin I 2.310 H* (0-0.045) ng/ml Total Protein 7.0 (6.4-8.2) gm/dl Albumin 2.9 L (3.4-5.0) gm/dl Globulin 4.1 H (2.5-4.0) gm/dl Albumin/Globulin Ratio 0.7 L (0.9-2) Lipase 366 (73-393) U/L Beta-Hydroxybutyric Acd 2.79 (0.2-2.81) mg/dl Imaging Data Radiologist's Impression: Radiology results as stated below per my review and the radiologist's interpretation: SINGLE VIEW CHEST CLINICAL HISTORY: Atypical chest pain. FINDINGS: An AP, portable, upright chest radiograph is compared to study dated 04/20/2013. The examination is degraded by portable technique and patient rotation. The cardiomediastinal silhouette is unremarkable noting atherosclerotic calcification of the thoracic aorta. There is chronic elevation of the right hemidiaphragm with bibasilar scarring/atelectasis. Chronic interstitial thickening is similar to previous. Patchy airspace opacities are identified in the left upper lobe and possibly at the left lung base. No large pleural effusion or pneumothorax is seen. The skeletal structures are osteopenic. The bony thorax is grossly intact. Degenerative change is noted in the shoulders and thoracic spine. IMPRESSION: There is patchy airspace consolidation identified in the left upper lobe and possibly at the left lung base. Correlate clinically for evidence of pneumonia/aspiration pneumonitis. Radiographic follow-up to resolution is recommended. Electronically signed by: Gigi Gomez M.D. 04/14/2019 9:26 AM ECG Data Indication: + chest pain Rate (beats per minute): 82 Rhythm: + normal sinus ECG ST segments: + ST depression (Anterior), + ST elevation (Lead III) and + T- wave inversions (Lateral) Comparison ECG Date: from (04/14/19) Change: the following changes noted (ST elevation in lead III have gotten worse, Diffuse Twave abnotmality persist, concerning for acute ME) Blood Pressure Blood Pressure Findings: Low blood pressure Blood Pressure Disposition: further management by hospitalist [facility] Narrative This patient comes in as described above. He was placed in room B2. He has been getting short of breath at night and had another episode last night that was worse than typical. He was started on oxygen yesterday. He had echo done of his heart about 2 weeks ago by his doctor's office which by report was unremarkable. He may have had some mild chest and arm pain on the left as well although he tells me his chronic left arm pain from a previous stroke and arthritis and he has baseline left arm weakness. He looks well and his symptoms are atypical however his initial EKG was concerning for cardiac disease. An extensive cardiac work-up was obtained the patient remained stable. I did review an old EKG and it several years old but looks markedly different, I am concerned that he has ST depression anteriorly with some elevation inferiorly in one lead. A second EKG was obtained as the patient started feeling that he had symptoms again and it looks more pronounced. I called the heart alert and he was given aspirin 324 mg chewable. Chest x-ray does not show CHF, there is possible mild pneumonia. He was given nitroglycerin which seemed to help his pain though his pressure dropped into the 90s temporarily. It came up with some fluids. The patient looks well but is going to the [facility] for emergent cath and possible angioplasty and I am concerned that he may be having acute ME. Impression & Plan Acute ME, Hypertension, Shortness of breath, Chest pain, Weakness of left side of body Discharge Plan Visit Data Chief Complaint: Shortness of Breath/Dyspnea Stated Complaint: SOB, CHEST DISCOMFORT ED Provider: Jefe Rose Discharge Problem: Acute ME, Hypertension, Shortness of breath, Chest pain, Weakness of left side of body Discharge Instructions Interventions: ED Discharge Assessment Last Done: 04/14/19 09:59 Discharge Problem: Acute ME Qualifiers: Myocardial infarction type: unspecified Involved coronary artery: unspecified coronary artery Qualified Code(s): I21.9 - Acute myocardial infarction, unspecified Hypertension Qualifiers: Hypertension type: unspecified Qualified Code(s): I10 - Essential (primary) hypertension Chest pain Qualifiers: Chest pain type: chest pain due to myocardial ischemia Ischemic chest pain type: unstable angina pectoris Qualified Code(s): I20.0 - Unstable angina The scribe's documentation has been prepared under my direction and personally reviewed by me in its entirety. I confirm that the note above accurately reflects all work, treatment, procedures, and medical decision making performed by me.
[2019-04-14] MEDS ORDERED: LORazepam 0.5 MG TAB PO PRN (12:21)
[2019-04-14] MEDS ORDERED: INSULIN GLARGINE SOLOSTAR 100 UNITS/ML 3 ML PEN SQ SCH ×2 (13:00→21:00)
[2019-04-14] MEDS ORDERED: INSULIN HUMAN REGULAR PER UNIT 4 UNITS in SYRINGE 3.96 ML IV ONE (13:00)
[2019-04-14] MEDS: INSULIN ASPART 100 UNITS/ML 3 ML PEN SC SCH ×3 (13:10→20:43)
--- NOTE | 2019-04-14 13:59 | History and Physical Report ---
DATE OF ADMISSION: 04/14/2019 CHIEF COMPLAINT: Non-ST elevated [place]. HISTORY OF PRESENT ILLNESS: This is an 83-year-old male with past medical history significant for diabetes, CAD, history of heart failure with preserved EF, hypertension, history of ischemic right MCA stroke, left hemiparesis, seizure disorder, diabetes - insulin requiring, status post BKA of the left lower extremity, history of tobacco abuse, currently wheelchair bound since 2012, on a hospital bed at home. For the last few nights, he is awaking up with shortness of breath and complained of chest pain and left shoulder pain. He also has left shoulder arthritis. He was requiring his lorazepam, Nyquil and Vicodin to sleep. It is going on for the last few nights and the last night was worse, so he came to the hospital and found to have non-ST elevated KY with a troponin of 2.3. He is status post emergent cardiac cath, which showed severe triple vessel disease. The patient is thought to be not a good candidate for CABG. He is status post intraaortic balloon pump. Currently, since the procedure, his symptoms are much improved. He is feeling better. The plan is to monitor in the ICU and the family to decide for either medical management or transfer to tertiary care center for high-risk PCI. The patient's family seems to keep him here, plan to consult palliative care . As per interventional cardiology if patient stays here to slowly taper off the intraaortic balloon pump and maybe probably requires nitroglycerin paste. Currently resting comfortably and hemodynamically stable. He says he is feeling much better. Denies any shortness of breath now. Denies any chest pain now. Vision is okay. Denies any earaches or sore throat or cough. No recent fever or chills. No abdominal pain. Appetite is good. No dysphagia. Normal bowel and bladder movements. ALLERGIES: MORPHINE. PAST MEDICAL HISTORY: As mentioned above. 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 MEDICATIONS: The patient is on Vicodin 5 mg 1 tablet every 6 hours p.r.n., Keppra 750 mg p.o. b.i.d., Ativan 0.25 to 0.5 mg 3 times a day p.r.n., Lasix 20 mg p.o. daily, nitroglycerin 0.4 mg sublingual p.r.n., Protonix 40 mg p.o. daily, atorvastatin 80 mg p.o. daily, lisinopril 10 mg daily, Zofran 4 mg 1 tablet every 6 hours p.r.n., Cymbalta 30 mg p.o. daily, metformin ER 1000 mg daily, Coreg 3.125 mg b.i.d., Tessalon Perles p.r.n., Humalog 2 units subcutaneous prior to meals depending on blood sugar results - no more than 10 units per day, Lantus 12 units at bedtime, Prozac 40 mg daily, famotidine 20 mg p.o. daily, aspirin 81 mg p.o. daily. FAMILY HISTORY: Significant for mother had arthritis, angina, in sleep. Father had sudden at the age of 71, history of [place]. Brother has COPD, smoker. SOCIAL HISTORY: and lives with his . Quit smoking in 1971, smoked half-pack a day for 15 years. Alcohol rarely. No drug use. REVIEW OF SYMPTOMS: As per HPI. Rest of the review of systems is negative. PHYSICAL EXAMINATION: GENERAL: The patient is of moderate built, currently not in acute distress. VITAL SIGNS: Temperature 36.5, pulse 88, respiratory rate 14, blood pressure 105/58, oxygen 97% on 3 liters. HEENT: No pallor, no icterus. NECK: No JVD, no neck masses, no carotid bruits. CARDIOVASCULAR: S1, S2 heard, regular rate and rhythm, no murmur, no gallop. RESPIRATORY SYSTEM: Normal AP diameter. No accessory muscle use. No wheezing, no crackles. ABDOMEN: Soft, bowel sounds present, nontender. No distention. CENTRAL NERVOUS SYSTEM: Alert and awake and oriented. Obeys simple commands. EXTREMITIES: Status post left below-knee amputation. No edema, no erythema seen. Right wrist cardiac cath site clean and left groin IABP site clean. LABORATORIES DATA: WBC 12.6, hemoglobin 11.9, hematocrit 36.1, platelets 275. Sodium 135, potassium 5.2, chloride 100, bicarbonate 26, BUN 40, creatinine 1.44, serum glucose 365, calcium 9, total bilirubin 0.4, AST 33, ALT 24, alkaline phosphatase 150. Troponin I 2.3, lipase 66. Beta hydroxybutyric acid 2.79. Chest x-ray: Patchy airspace consolidation in the left upper lobe and possibly in the left lung base, correlate clinically for evidence of pneumonia or aspiration pneumonitis. Radiological followup for resolution is recommended. EKG shows normal sinus rhythm, rate of 87, incomplete left bundle branch block, marked ST abnormality in the inferior leads and anterolateral leads. ASSESSMENT AND PLAN: This is an 83-year-old male who presents with chest pain, shortness of breath and found to have non-ST elevated myocardial infarction. 1. Non-ST elevated myocardial infarction. The patient has been having shortness of breath for the last few nights, awakening up from sleep and complaining of shortness of breath and also chest discomfort. He is requiring Vicodin, Ativan, and Nyquil to go to sleep. Last night was severe, so he came to the Emergency Room and found to have non-ST elevated myocardial infarction, status post emergent cardiac catheterization and found to have severe triple vessel disease, status post intraaortic balloon pump, currently he is symptom free. Plan for medical management and palliative care versus complex percutaneous coronary intervention. Right now, the family is leaning towards medical management. Cardiology wanted to observe and monitor in the Intensive Care Unit and slowly taper off his balloon pump and may place him on nitroglycerin paste depending on how he does, currently on IV heparin. Post-cardiac catheterization management as per cardiology. We will continue his home medication of aspirin, statin and Coreg. 2. History of congestive heart failure with preserved ejection fraction, currently Lasix on hold. Received Iv fluids.. We will monitor for any volume overload. He is on Coreg and lisinopril. 3. History of cerebrovascular accident and right carotid endarterectomy,Hx of left hemiparesis on aspirin, statin. 4. History of hypertension. Continue his Coreg, lisinopril. Monitor his blood pressure. 5. History of diabetes. Blood sugars are running high. Didn't receive his meds today . We will continue his Lantus insulin sliding scale and Follow hemoglobin A1c levels, follow his blood sugars. Will give a dose of iv insulin 4 units one dose. Hold his metformin. Glycemic pharmacy consult. 6. History of seizures. Continue his Keppra. 7. Hyperlipidemia. Continue statin. Follow his lipid profile. 8. History left below-knee amputation, on aspirin and statin. On wheelchair since 2012, on a hospital bed at home. 9.Hyperkalemia . potassium 5.2. Receiving insulin. Will follow repeat labs. 10.. Deep venous thrombosis prophylaxis, on IV heparin. 11. Disposition. Close monitoring in intensive care unit. 12. Code status, do not resuscitate as per my discussion with the family. [place]
--- NOTE | 2019-04-14 17:56 | Critical Care Consultation ---
Date of Consultation April 14, 2019 Assessment & Plan (1) On intra-aortic balloon pump assist: Reason Critically Ill: Acute myocardial infarction requiring intra-aortic balloon pump PLAN: Neuro: History of CVA with residual deficits Resp: Dyspnea -Likely related to cardiac disease CV: Triple-vessel disease -Medical optimization weaning intra-aortic balloon pump Fluids/Renal: Mild hyperkalemia at 5.2 -We will monitor in morning may be related to mild hemolysis secondary to balloon pump Elevated creatinine -Continue to monitor ID: Monitor fever curve GI/Nutrition: N.p.o. while laying flat -We will progress diet as tolerated when he is able to sit upright Heme: Anemia DVT prophylaxis: Heparin infusion Endocrine: ICU hyperglycemia protocol Vascular access: Femoral intra-aortic balloon pump, peripheral IVs Code Status: DNR/DNI Patient is critically ill, bout of care consult is ordered. I have started weaning of the balloon pump I have coordinated with Dr. Bentley of Dr. Aguilar to hopefully remove the balloon pump in the next 3 to 4 hours. (2) Admitted to intensive care unit: (3) Weakness of left side of body: (4) Acute WA: (5) CHF (congestive heart failure), NYHA class II: History of Present Illness Attending Physician: Malachi Novoa MD Patient is an 83-year-old male who has significant multiple comorbidities who presents after several week complaint of difficulty breathing. He had elevated troponins and EKG changes was taken to the cardiac [employer] and was found to have triple-vessel disease. Ultimately he was considered to be a high risk patient not an appropriate surgical candidate and the family opts to not pursue advanced PCI at a tertiary care center so a intra-aortic balloon pump was placed to help medically optimized the patient and he was transferred to the ICU for weaning from balloon pump and transition to palliative care with hopeful discharge home. During my evaluation the patient was chest pain-free no shortness of breath, desires to sit up as he is laying flat due to the balloon pump. Allergies Allergy/AdvReac Type Severity Reaction Status Date / Time morphine AdvReac Severe NAUSEA Verified 04/14/19 09:37 Home Medications Home Medications Medication Instructions Recorded Confirmed Type carvedilol [Coreg] 3.125 mg PO BID #0 tab 08/31/12 04/14/19 History insulin glargine [Lantus Solostar 12 unit SUBCUT HS #0 vial 08/31/12 04/14/19 History U-100 Insulin] insulin lispro [Humalog KwikPen 2 unit SUBCUT DIRECTED PRN #0 08/31/12 04/14/19 History Insulin] btl melatonin 3 mg PO HS #0 12/19/12 04/14/19 History aspirin [Aspirin Low Dose] 81 mg PO DAILY #0 02/27/13 04/14/19 History levetiracetam [Keppra] 750 mg PO BID #0 tab 04/11/13 04/14/19 History lorazepam [Ativan] 0.25 - 0.5 mg PO HS PRN #0 tab 04/11/13 04/14/19 History atorvastatin [Lipitor] 80 mg PO HS #0 tab 04/18/13 04/14/19 History lisinopril [Prinivil] 5 mg PO QAM #0 tab 04/22/13 04/14/19 History diphenhydramine-acetaminophen 1 tab PO HS PRN 04/14/19 04/14/19 History [Tylenol PM Extra Strength] duloxetine 30 mg PO DAILY 04/14/19 04/14/19 History furosemide [Lasix] 20 mg PO DAILY 04/14/19 04/14/19 History hydrocodone-acetaminophen 1 tab PO Q6H PRN 04/14/19 04/14/19 History metformin 1,000 mg PO DAILY 04/14/19 04/14/19 History ondansetron HCl [Zofran] 4 - 8 mg PO DIRECTED PRN 04/14/19 04/14/19 History Patient History Social History Preferred Language: Japanese Communication Ability: Effective Rn Anesthetist Required: No Beliefs That Will Affect Care: None Current Living Situation: Spouse Other Information That Helps Us Care for You: No Feels Safe at Home: Yes Safety Concerns: Feels Safe At This Time Smoking Status: Former smoker Hx Alcohol Use: No Hx Substance Use: No Physical Exam Physical Exam: General: Alert. nontoxic. Skin: Warm, dry, Head: Atraumatic Ears, nose, mouth and throat: airway patent Cardiovascular: Normal peripheral perfusion Respiratory: no respiratory distress Gastrointestinal: Non distended Musculoskeletal: No deformity Results & Data Vital Signs (Past 12 Hours) Vital Signs Temp Pulse Pulse Resp BP BP Pulse Ox 04/14/19 17:31 74 15 162/72 H 97 04/14/19 17:15 76 21 155/88 H 98 04/14/19 17:00 75 78 22 142/65 H 155/88 H 98 04/14/19 16:01 36.8 C 78 12 134/66 95 04/14/19 16:00 76 134/66 93 04/14/19 15:00 76 76 15 144/66 H 95 04/14/19 14:00 73 72 14 132/71 98 04/14/19 13:26 76 11 L 140/67 96 04/14/19 13:06 36.7 C 80 16 140/67 97 04/14/19 13:00 74 76 12 148/80 H 140/67 96 04/14/19 12:45 79 14 97 04/14/19 12:36 79 154/70 H 97 04/14/19 12:30 77 12 98 04/14/19 12:15 77 16 97 04/14/19 12:00 36.7 C 80 16 86 L 04/14/19 11:57 75 18 154/70 H 97 04/14/19 11:50 90 9 L 04/14/19 09:59 36.5 C 88 14 105/58 L 97 04/14/19 09:57 87 14 105/58 L 97 04/14/19 09:55 86 13 105/58 L 97 04/14/19 09:51 84 14 96 04/14/19 09:50 85 16 103/66 96 04/14/19 09:46 82 82 20 108/59 L 95 04/14/19 09:45 83 13 108/59 L 94 04/14/19 09:42 90 04/14/19 09:41 81 19 108/59 L 94 04/14/19 09:40 84 20 97/62 L 92 04/14/19 09:39 84 26 H 82/56 L 91 04/14/19 09:37 83 16 92 04/14/19 09:36 83 19 89/44 L 93 04/14/19 09:35 85 23 88/45 L 93 04/14/19 09:33 83 18 95 04/14/19 09:32 85 14 118/67 96 04/14/19 09:31 87 17 04/14/19 09:30 78 81 18 113/63 113/63 96 04/14/19 09:25 82 18 96 04/14/19 09:20 82 17 97 04/14/19 09:15 85 15 98 04/14/19 09:10 85 16 97 04/14/19 09:05 81 16 97 04/14/19 09:00 83 16 106/75 98 04/14/19 08:58 94 04/14/19 08:55 79 13 98 04/14/19 08:51 36.5 C 83 18 104/58 L 94 04/14/19 08:50 84 16 97 04/14/19 08:45 84 22 97 04/14/19 08:44 86 19 98 04/14/19 08:41 85 15 122/68 98 Laboratory Results 04/14/19 04/14/19 04/14/19 Range/Units 17:39 17:39 16:08 WBC (4.8-10.8) K/uL RBC (4.7-6.1) M/uL Hgb (14.0-18.0) g/dL Hct (42-52) % MCV (80-100) fL MCH (25-34) pg MCHC (32-36) g/dL RDW Std Deviation (36.4-46.3) fL RDW Coeff of Roderick (11.5-14.5) % Plt Count (130-400) K/uL MPV (7.4-10.4) fL Immature Gran % (Auto) % Neut % (Auto) % Lymph % (Auto) % [place] % (Auto) % Eos % (Auto) % Baso % (Auto) % Immature Gran # (Auto) (0.00-0.02) K/uL Neut # (Auto) (1.4-6.5) K/uL Lymph # (Auto) (1.2-3.4) K/uL [place] # (Auto) (0.11-0.59) K/uL Eos # (Auto) (0-0.5) K/uL Baso # (Auto) (0-0.2) K/uL APTT Pending PTT Ratio Pending Sodium (136-145) mmol/L Potassium Pending (3.5-5.1) mmol/L Chloride (98-107) mmol/L Carbon Dioxide (21-32) mmol/L Anion Gap (3-11) BUN (7-18) mg/dl Creatinine (0.6-1.4) mg/dl Est Cr Clr Drug Dosing ml/min Est GFR ( Amer) Est GFR (Non-Af Amer) BUN/Creatinine Ratio (10-20) Glucose (70-99) mg/dl POC Glucose 257 H (70-99) Calcium (8.5-10.1) mg/dl Total Bilirubin (0.2-1) mg/dl AST (15-37) U/L ALT (12-78) U/L Alkaline Phosphatase (45-117) U/L POC Troponin I (0-0.045) ng/ml Troponin I (0-0.045) ng/ml Total Protein (6.4-8.2) gm/dl Albumin (3.4-5.0) gm/dl Globulin (2.5-4.0) gm/dl Albumin/Globulin Ratio (0.9-2) Lipase (73-393) U/L Beta-Hydroxybutyric Acd (0.2-2.81) mg/dl Nasal Screen MRSA (PCR) (Negative) 04/14/19 04/14/19 04/14/19 Range/Units 12:32 12:30 08:51 WBC (4.8-10.8) K/uL RBC (4.7-6.1) M/uL Hgb (14.0-18.0) g/dL Hct (42-52) % MCV (80-100) fL MCH (25-34) pg MCHC (32-36) g/dL RDW Std Deviation (36.4-46.3) fL RDW Coeff of Roderick (11.5-14.5) % Plt Count (130-400) K/uL MPV (7.4-10.4) fL Immature Gran % (Auto) % Neut % (Auto) % Lymph % (Auto) % [place] % (Auto) % Eos % (Auto) % Baso % (Auto) % Immature Gran # (Auto) (0.00-0.02) K/uL Neut # (Auto) (1.4-6.5) K/uL Lymph # (Auto) (1.2-3.4) K/uL [place] # (Auto) (0.11-0.59) K/uL Eos # (Auto) (0-0.5) K/uL Baso # (Auto) (0-0.2) K/uL APTT PTT Ratio Sodium (136-145) mmol/L Potassium (3.5-5.1) mmol/L Chloride (98-107) mmol/L Carbon Dioxide (21-32) mmol/L Anion Gap (3-11) BUN (7-18) mg/dl Creatinine (0.6-1.4) mg/dl Est Cr Clr Drug Dosing ml/min Est GFR ( Amer) Est GFR (Non-Af Amer) BUN/Creatinine Ratio (10-20) Glucose (70-99) mg/dl POC Glucose 328 H* (70-99) Calcium (8.5-10.1) mg/dl Total Bilirubin (0.2-1) mg/dl AST (15-37) U/L ALT (12-78) U/L Alkaline Phosphatase (45-117) U/L POC Troponin I 1.85 H (0-0.045) ng/ml Troponin I (0-0.045) ng/ml Total Protein (6.4-8.2) gm/dl Albumin (3.4-5.0) gm/dl Globulin (2.5-4.0) gm/dl Albumin/Globulin Ratio (0.9-2) Lipase (73-393) U/L Beta-Hydroxybutyric Acd (0.2-2.81) mg/dl Nasal Screen MRSA (PCR) Negative (Negative) 04/14/19 04/14/19 Range/Units 08:45 08:45 WBC 12.69 H (4.8-10.8) K/uL RBC 4.27 L (4.7-6.1) M/uL Hgb 11.9 L (14.0-18.0) g/dL Hct 36.1 L (42-52) % MCV 84.5 (80-100) fL MCH 27.9 (25-34) pg MCHC 33.0 (32-36) g/dL RDW Std Deviation 49.4 H (36.4-46.3) fL RDW Coeff of Roderick 16.3 H (11.5-14.5) % Plt Count 275 (130-400) K/uL MPV 11.2 H (7.4-10.4) fL Immature Gran % (Auto) 0.2 % Neut % (Auto) 82.3 % Lymph % (Auto) 11.0 % [place] % (Auto) 5.0 % Eos % (Auto) 1.3 % Baso % (Auto) 0.2 % Immature Gran # (Auto) 0.03 H (0.00-0.02) K/uL Neut # (Auto) 10.43 H (1.4-6.5) K/uL Lymph # (Auto) 1.40 (1.2-3.4) K/uL [place] # (Auto) 0.64 H (0.11-0.59) K/uL Eos # (Auto) 0.16 (0-0.5) K/uL Baso # (Auto) 0.03 (0-0.2) K/uL APTT PTT Ratio Sodium 135 L (136-145) mmol/L Potassium 5.2 H (3.5-5.1) mmol/L Chloride 100 (98-107) mmol/L Carbon Dioxide 26 (21-32) mmol/L Anion Gap 9.0 (3-11) BUN 40 H (7-18) mg/dl Creatinine 1.44 H (0.6-1.4) mg/dl Est Cr Clr Drug Dosing 45.5 ml/min Est GFR ( Amer) 52.4 Est GFR (Non-Af Amer) 45.2 BUN/Creatinine Ratio 27.8 H (10-20) Glucose 365 H* (70-99) mg/dl POC Glucose (70-99) Calcium 9.0 (8.5-10.1) mg/dl Total Bilirubin 0.4 (0.2-1) mg/dl AST 33 (15-37) U/L ALT 24 (12-78) U/L Alkaline Phosphatase 150 H (45-117) U/L POC Troponin I (0-0.045) ng/ml Troponin I 2.310 H* (0-0.045) ng/ml Total Protein 7.0 (6.4-8.2) gm/dl Albumin 2.9 L (3.4-5.0) gm/dl Globulin 4.1 H (2.5-4.0) gm/dl Albumin/Globulin Ratio 0.7 L (0.9-2) Lipase 366 (73-393) U/L Beta-Hydroxybutyric Acd 2.79 (0.2-2.81) mg/dl Nasal Screen MRSA (PCR) (Negative) Coding Level of Care Code Critical Care 1st 30-74 mins Diagnoses On intra-aortic balloon pump assist Z98.890 Admitted to intensive care unit Z78.9 Weakness of left side of body R53.1 Acute [place] I21.9 Involved coronary artery: unspecified coronary artery Myocardial infarction type: unspecified CHF (congestive heart failure), NYHA class II I50.9 Time Spent (min) 50 Comment I have personally spent 50 minutes of critical care time in the direct management of this patient. This is a life/limb threatening event. This includes time spent evaluating patient, direct bedside care, chart review, placing orders, interpretation of diagnostic studies, discussion with consultants, patient, and/or family members regarding treatment decisions, as well as other required patient management activities. This time is exclusive of all separately billable procedures, and teaching time and separate from and in addition to any other critical care service time. (1) Acute [place] Involved coronary artery: unspecified coronary artery Myocardial infarction type: unspecified Qualified Code(s): I21.9 - Acute myocardial infarction, unspecified
[2019-04-14] MEDS ORDERED: PHARMACY GLYCEMIC MGMT CONSULT PRN (18:02)
[2019-04-14] MEDS: FUROSEMIDE 20 MG TAB PO SCH (18:02)
[2019-04-14] MEDS ORDERED: NITROGLYCERIN 2% OINTMENT 30GM TUBE ONE (18:08)
[2019-04-14 18:09] LABS: Partial Thromboplastin Ratio 3.3
[2019-04-14 18:11] LABS: Partial Thromboplastin Time 89.4 Seconds (21.0-31.0)
[2019-04-14] MEDS ORDERED: NITROGLYCERIN 2% OINTMENT 30GM TUBE EXT ONE (18:13)
[2019-04-14] MEDS ORDERED: INSULIN ASPART 100 UNITS/ML 3 ML PEN SC ONE (18:45)
--- NOTE | 2019-04-14 19:46 | Pharmacy Report ---
Glycemic Control Consultation - Date of Service April 14, 2019 - Scope Scope: Glycemic Pharmacist consulted by Dr Novoa on 04/14/19 for glycemic control and to write orders per [facility] inpatient glycemic control protocol - Objective Weight: 92.9 kg Accuchecks BSG (last 24hrs): 04/14/19 04/14/19 04/14/19 08:45 12:32 16:08 Glucose 365 H* POC Glucose 328 H* 257 H Laboratory Data (last 24hrs): 04/14/19 04/14/19 08:45 17:39 Potassium 5.2 H 4.0 D Carbon Dioxide 26 Anion Gap 9.0 Creatinine 1.44 H Est Cr Clr Drug Dosing 45.5 Beta-Hydroxybutyric Acd 2.79 - Recent Pertinent Medications Outpatient Anti-diabetic Regimen: * Lantus 12 units HS * Humalog sliding scale insulin (does not take regularly) * Metformin 1000 mg PO daily * A1c ordered for tomorrow AM The patient is currently receiving: * Basal insulin: Lantus 12 units daily * Correctional Insulin: Novolog Correction per scale ACHS Goal Range: Low 140 mg/dL - High 180 mg/dL Correction Factor: 30 mg/dL/unit * Prandial insulin: Per carb ratio of 1 unit per 12 grams CHO consumed Risk Factors for Insulin Resistance: * IVF: Heparin gtt currently @17 mL/hr * Recent Surgery: POD #0 s/p intra-aortic balloon insertion * Diet: T2DM - Assessment & Plan Assessment & Plan: ASSESSMENT: * RH is an 83 year old male s/p intra-aortic balloon pump insertion following NSTEMI this morning (04/14) * Balloon pump to be slowly tapered off * PMH includes CAD, CHF, seizure disorder, history of CVA and BKA * BSG following surgery was 328 mg/dL * At that time - patient received 12 units of Lantus, 4 units of IV regular insulin, and 5 units of Novolog * BSG trended down to 257 mg/dL at dinner - pharmacy consulted at this time * Heparin gtt currently running at 17 mL/hr PLAN FOR INPATIENT GLYCEMIC CONTROL: * Holding outpatient oral diabetes medications * Basal insulin * Lantus 12 units (given at lunch) * Will reassess basal in AM * Bolus insulin - tighten all parameters starting at HS * NovoLog per scale ACHS or Q6hrs while NPO * Goal Range: Low 120 mg/dL - High 160 mg/dL * Correction Factor: 20 mg/dL/unit * Nutritional / Prandial insulin per carb ratio of 1 unit per 7 grams CHO consumed * Will add ,04 checks with same parameters * Please note that the plan above was derived based on current level of insulin resistance and hospital stress. These recommendations are appropriate for inpatient admission only. Plan of care upon discharge will need to be reassessed to avoid potential outpatient hypo/hyperglycemia. Thank you.
[2019-04-14] MEDS: ATORVASTATIN 40 MG TAB PO SCH (20:44)
[2019-04-14] MEDS: levETIRAcetam 250 MG TAB PO SCH (20:45)
[2019-04-14] MEDS: carvediloL 3.125 MG TAB PO SCH (20:45)
[2019-04-14] MEDS ORDERED: ACETAMINOPHEN 500 MG TAB PO PRN (21:00)
--- NOTE | 2019-04-14 23:07 | Communication Note ---
Date of Service: April 14, 2019 Patient stable throughout day on IABP and nitropatch. Chest pain free this afternoon on IABP at 1:2. Decision made to forgo eval for complex PCI with goal of heading home. After discussion with Dr. Jacob decision to remove IABP. IABP removed without difficulty. Hemostasis after manual hold.
[2019-04-15] MEDS: INSULIN ASPART 100 UNITS/ML 3 ML PEN SC SCH ×6 (00:02→21:01)
[2019-04-15] MEDS: HYDROCODONE/ACETAMOPHEN 5/325MG TAB PO PRN ×2 (00:47→07:36)
[2019-04-15 05:32] LABS: Basophils # (auto) 0.02 K/uL (0-0.2); Basophils % (auto) 0.2 %; Eosinophils # (auto) 0.19 K/uL (0-0.5); Hematocrit (blood only) 35.2 % (42-52); Hemoglobin 11.5 g/dL (14.0-18.0); Immature Granulocytes # (auto) 0.03 K/uL (0.00-0.02); Immature Granulocytes % (auto) 0.3 %; Lymphocytes # (auto) 1.45 K/uL (1.2-3.4); Lymphocytes % (auto) 15.3 %; Mean Corpuscular Hemoglobin 27.9 pg (25-34); Mean Corpuscular Hgb Conc 32.7 g/dL (32-36); Mean Corpuscular Volume 85.4 fL (80-100); Mean Platelet Volume 10.8 fL (7.4-10.4); Monocytes # (auto) 0.83 K/uL (0.11-0.59); Monocytes % (auto) 8.8 %; Neutrophils # (auto) 6.95 K/uL (1.4-6.5); Neutrophils % (auto) 73.4 %; Platelet Count 208 K/uL (130-400); RDW Coefficient of Variation 16.4 % (11.5-14.5); RDW Standard Deviation 50.8 fL (36.4-46.3); Red Blood Count 4.12 M/uL (4.7-6.1); White Blood Count 9.47 K/uL (4.8-10.8)
[2019-04-15 06:00] LABS: BUN Creatinine Ratio 31.5 (10-20); Calcium 9.1 mg/dl (8.5-10.1); Creatinine Clr Calc Pharmacy 61.2 ml/min; Est GFR (African American) 75.1; Est GFR (Non-African American) 64.8; Potassium 4.3 mmol/L (3.5-5.1)
[2019-04-15] MEDS ORDERED: CALCIUM CARBONATE 500 MG CHEWABLE TAB PO ONE (07:25)
[2019-04-15] MEDS: DULOXETINE HCL 30 MG CAP PO SCH (08:08)
[2019-04-15] MEDS: levETIRAcetam 250 MG TAB PO SCH ×2 (08:08→20:58)
[2019-04-15] MEDS: ASPIRIN 81 MG ECTAB PO SCH (08:08)
[2019-04-15] MEDS: carvediloL 3.125 MG TAB PO SCH ×2 (08:08→20:56)
[2019-04-15] MEDS: FUROSEMIDE 20 MG TAB PO SCH (08:09)
[2019-04-15] MEDS ORDERED: NITROGLYCERIN 0.3 MG/1 TAB 100 TAB BTL SL PRN (08:10)
[2019-04-15] MEDS: INSULIN GLARGINE SOLOSTAR 100 UNITS/ML 3 ML PEN SQ SCH (08:13)
[2019-04-15] MEDS ORDERED: NITROGLYCERIN SL 0.4 MG/TAB TAB ONE (08:15)
[2019-04-15] MEDS ORDERED: NITROGLYCERIN SL 0.4 MG/TAB TAB SL PRN (08:31)
--- NOTE | 2019-04-15 08:58 | Pharmacy Report ---
Pharmacy Glycemic Short Note 2 - Date of Service April 15, 2019 - Glycemic Short BSG Results (Last 24 hours): 04/14/19 04/14/19 04/14/19 08:45 12:32 16:08 Glucose 365 H* POC Glucose 328 H* 257 H 04/14/19 04/14/19 04/15/19 20:38 23:49 04:04 Glucose POC Glucose 228 H 202 H 218 H 04/15/19 04/15/19 05:23 07:30 Glucose 209 H POC Glucose 178 H OUTPATIENT ANTIDIABETIC REGIMEN: * Lantus 12 units SQ Q 24hrs * Humalog SSI; ~ 2 units with meals * Metformin 1,000mg PO daily * A1c Pending for 04/15/19 ASSESSMENT: * POD # 1 a/p intra-aortic balloon pump insertion following NSTEMI (04/14). PMH includes CAD, CHF, seizure disorder, history of CVA and BKA * Pt with severe hyperglycemia prior to and after surgery. * BSGs trending downwards but still above goal range * Pt has received 31 units of insulin over the past 24hrs * 12 units of basal insulin {Lantus} * 19 units of bolus insulin {NovoLog} * BSGs ranging 178-365 mg/dl * AM fasting BSG is above goal range at 178 mg/dl with 12 units of basal on board + 11 units of correctional insulin over night. Will add the correctional insulin to the basal dose to increase dose to 23 units SQ Q24hrs in AM * Post-prnadial BSGs elevated but CF/CR tightened last night. Have not been able to filly evaluate. Will continue the same and tighten if BSGs consistently > 180 mg/dl * Heparin gtt currently running at 17 mL/hr- base solution is dextrose. May need to taper insulin regimen when this is stopped. * Goal is to maintain BSGs <200 mg/dl (ideally <150 mg/dl) to prevent post op complications PLAN FOR INPATIENT GLYCEMIC CONTROL: * Hold outpatient oral diabetes medications * Basal insulin: increase dosing * Lantus 23 units SQ daily in AM * Bolus insulin: no change * NovoLog per scale ACHS or Q6hrs while NPO * Goal Range: Low 120 mg/dL - High 160 mg/dL {slightly elevated goal range for age and ICU status} * Correction Factor: 15 mg/dL/unit * Nutritional / Prandial insulin per carb ratio of 1 unit per 6 grams CHO consumed PLAN FOR DISCHARGE: * A1c pending for 04/15. DC recs to follow after A1c results. * Goal A1c = >8 % based on age and comorbidities
[2019-04-15] MEDS ORDERED: Heparin IV Standard *NO* Bolus IV ONE (08:59)
[2019-04-15] MEDS ORDERED: lisinopriL 5 MG TAB PO SCH (09:00)
--- NOTE | 2019-04-15 09:06 | Cardiology Progress Note ---
Date of Service April 15, 2019 Assessment & Plan (1) Coronary arteriosclerosis in [place] artery: (2) Non-STEMI (non-ST elevated myocardial infarction): (3) Seizure disorder: (4) Status post below knee amputation: (5) Status post carotid endarterectomy: (6) CHF (congestive heart failure), NYHA class II: The patient is having additional chest pain this morning. His balloon pump was removed last evening. I will restart his heparin. His discomfort was improved with sublingual nitroglycerin and I will add Nitropaste as long as his blood pressure will tolerate. He lists morphine as an allergy due to nausea. We will treat him with fentanyl on an as-needed basis for chest pain. Subjective The patient had the balloon pump removed last evening. He did well through the night until this morning he began to have some chest discomfort. It improved with sublingual nitroglycerin but is still not completely gone. The patient was given p.o. Vicodin. He has an allergy to morphine which is listed as nausea. He denies shortness of breath. He is alert and oriented. Review of Systems Review of Systems: All systems reviewed & are unremarkable except as noted in HPI & below Nothing additional to add Physical Exam Physical Exam: General: no acute distress and stated age Head: normocephalic, no masses, lesions, tenderness or abnormalities Eyes: conjunctiva are pink and non-injected, sclera clear Neck: supple, no adenopathy, no bruits, normal jugular venous pulse, no hepatojugular reflux Chest: normal shape and normal respiratory effort Lungs: clear to auscultation and percussion Cardiac Exam: - regular rate & rhythm, no murmurs gallops or rubs - normal S1, normal S2 Pulses: 2(+) throughout Abdomen: abdomen soft, non-tender, no abnormal masses and no hepatosplenomegaly Musculoskeletal: no gait disturbance, no joint inflammation, no deforming arthritis Extremities: BKA Neuro: grossly normal exam Results & Data Vital Signs (Past 12 Hours) Vital Signs Temp Pulse Resp BP Pulse Ox 04/15/19 08:00 90 04/15/19 06:01 77 16 97 04/15/19 06:00 80 13 91/59 L 97 04/15/19 05:01 80 15 98 04/15/19 05:00 36.5 C 79 14 101/57 L 99 04/15/19 04:01 79 15 98 04/15/19 04:00 36.5 C 78 13 94/57 L 94 04/15/19 03:01 74 16 96 04/15/19 03:00 74 15 97/67 L 97 04/15/19 02:01 75 17 96 04/15/19 02:00 77 13 102/47 L 96 04/15/19 01:01 75 20 98/43 L 97 04/15/19 01:00 75 12 97 04/15/19 00:31 80 16 95 04/15/19 00:30 78 19 88/49 L 96 04/15/19 00:01 77 12 98 04/15/19 00:00 80 15 85/50 L 93 04/14/19 23:36 76 04/14/19 23:31 78 18 94 04/14/19 23:30 78 16 85/46 L 95 04/14/19 23:17 98 04/14/19 23:16 92 H 18 108/46 L 96 04/14/19 23:01 77 12 94 04/14/19 23:00 77 16 87/49 L 91 04/14/19 22:46 77 14 95 04/14/19 22:45 80 22 98/46 L 95 04/14/19 22:40 36.6 C 74 12 97 04/14/19 22:35 76 17 98 04/14/19 22:31 78 21 98 04/14/19 22:30 80 16 92/59 L 99 04/14/19 22:25 81 16 102/35 L 99 04/14/19 22:20 78 23 102/35 L 98 04/14/19 22:16 81 18 98 04/14/19 22:15 81 16 102/35 L 98 04/14/19 22:10 78 21 99 04/14/19 22:06 77 13 107/61 98 04/14/19 22:05 81 17 98 04/14/19 22:01 82 20 81/43 L 98 04/14/19 22:00 76 16 98 04/14/19 21:55 79 17 100/60 98 04/14/19 21:50 82 18 130/60 98 04/14/19 21:30 76 12 151/74 H 95 Laboratory Results Laboratory Results - last 24 hr 04/14/19 04/14/19 04/14/19 08:45 08:45 12:30 WBC 12.69 H RBC 4.27 L Hgb 11.9 L Hct 36.1 L MCV 84.5 MCH 27.9 MCHC 33.0 RDW Std Deviation 49.4 H RDW Coeff of Roderick 16.3 H Plt Count 275 MPV 11.2 H Immature Gran % (Auto) 0.2 Neut % (Auto) 82.3 Lymph % (Auto) 11.0 [place] % (Auto) 5.0 Eos % (Auto) 1.3 Baso % (Auto) 0.2 Immature Gran # (Auto) 0.03 H Neut # (Auto) 10.43 H Lymph # (Auto) 1.40 [place] # (Auto) 0.64 H Eos # (Auto) 0.16 Baso # (Auto) 0.03 APTT PTT Ratio Sodium 135 L Potassium 5.2 H Chloride 100 Carbon Dioxide 26 Anion Gap 9.0 BUN 40 H Creatinine 1.44 H Est Cr Clr Drug Dosing 45.5 Est GFR ( Amer) 52.4 Est GFR (Non-Af Amer) 45.2 BUN/Creatinine Ratio 27.8 H Glucose 365 H* POC Glucose Estimat Average Glucose Hemoglobin A1c Calcium 9.0 Magnesium Total Bilirubin 0.4 AST 33 ALT 24 Alkaline Phosphatase 150 H Troponin I 2.310 H* Total Protein 7.0 Albumin 2.9 L Globulin 4.1 H Albumin/Globulin Ratio 0.7 L Triglycerides Cholesterol LDL Cholesterol, Calc VLDL Cholesterol, Calc HDL Cholesterol Cholesterol/HDL Ratio Lipase 366 Beta-Hydroxybutyric Acd 2.79 Nasal Screen MRSA (PCR) Negative 04/14/19 04/14/19 04/14/19 12:32 16:08 17:39 WBC RBC Hgb Hct MCV MCH MCHC RDW Std Deviation RDW Coeff of Roderick Plt Count MPV Immature Gran % (Auto) Neut % (Auto) Lymph % (Auto) [place] % (Auto) Eos % (Auto) Baso % (Auto) Immature Gran # (Auto) Neut # (Auto) Lymph # (Auto) [place] # (Auto) Eos # (Auto) Baso # (Auto) APTT PTT Ratio Sodium Potassium 4.0 D Chloride Carbon Dioxide Anion Gap BUN Creatinine Est Cr Clr Drug Dosing Est GFR ( Amer) Est GFR (Non-Af Amer) BUN/Creatinine Ratio Glucose POC Glucose 328 H* 257 H Estimat Average Glucose Hemoglobin A1c Calcium Magnesium Total Bilirubin AST ALT Alkaline Phosphatase Troponin I Total Protein Albumin Globulin Albumin/Globulin Ratio Triglycerides Cholesterol LDL Cholesterol, Calc VLDL Cholesterol, Calc HDL Cholesterol Cholesterol/HDL Ratio Lipase Beta-Hydroxybutyric Acd Nasal Screen MRSA (PCR) 04/14/19 04/14/19 04/14/19 17:39 20:38 23:49 WBC RBC Hgb Hct MCV MCH MCHC RDW Std Deviation RDW Coeff of Roderick Plt Count MPV Immature Gran % (Auto) Neut % (Auto) Lymph % (Auto) [place] % (Auto) Eos % (Auto) Baso % (Auto) Immature Gran # (Auto) Neut # (Auto) Lymph # (Auto) [place] # (Auto) Eos # (Auto) Baso # (Auto) APTT 89.4 H* PTT Ratio 3.3 Sodium Potassium Chloride Carbon Dioxide Anion Gap BUN Creatinine Est Cr Clr Drug Dosing Est GFR ( Amer) Est GFR (Non-Af Amer) BUN/Creatinine Ratio Glucose POC Glucose 228 H 202 H Estimat Average Glucose Hemoglobin A1c Calcium Magnesium Total Bilirubin AST ALT Alkaline Phosphatase Troponin I Total Protein Albumin Globulin Albumin/Globulin Ratio Triglycerides Cholesterol LDL Cholesterol, Calc VLDL Cholesterol, Calc HDL Cholesterol Cholesterol/HDL Ratio Lipase Beta-Hydroxybutyric Acd Nasal Screen MRSA (PCR) 04/15/19 04/15/19 04/15/19 04:04 05:23 05:23 WBC 9.47 RBC 4.12 L Hgb 11.5 L Hct 35.2 L MCV 85.4 MCH 27.9 MCHC 32.7 RDW Std Deviation 50.8 H RDW Coeff of Roderick 16.4 H Plt Count 208 MPV 10.8 H Immature Gran % (Auto) 0.3 Neut % (Auto) 73.4 Lymph % (Auto) 15.3 [place] % (Auto) 8.8 Eos % (Auto) 2.0 Baso % (Auto) 0.2 Immature Gran # (Auto) 0.03 H Neut # (Auto) 6.95 H Lymph # (Auto) 1.45 [place] # (Auto) 0.83 H Eos # (Auto) 0.19 Baso # (Auto) 0.02 APTT PTT Ratio Sodium 138 Potassium 4.3 Chloride 103 Carbon Dioxide 28 Anion Gap 7.0 BUN 34 H Creatinine 1.07 Est Cr Clr Drug Dosing 61.2 Est GFR ( Amer) 75.1 Est GFR (Non-Af Amer) 64.8 BUN/Creatinine Ratio 31.5 H Glucose 209 H POC Glucose 218 H Estimat Average Glucose Hemoglobin A1c Calcium 9.1 Magnesium 2.0 Total Bilirubin AST ALT Alkaline Phosphatase Troponin I Total Protein Albumin Globulin Albumin/Globulin Ratio Triglycerides 197 H Cholesterol 130 LDL Cholesterol, Calc 53 VLDL Cholesterol, Calc 39 HDL Cholesterol 38 Cholesterol/HDL Ratio 3 Lipase Beta-Hydroxybutyric Acd Nasal Screen MRSA (PCR) 04/15/19 04/15/19 05:23 07:30 WBC RBC Hgb Hct MCV MCH MCHC RDW Std Deviation RDW Coeff of Roderick Plt Count MPV Immature Gran % (Auto) Neut % (Auto) Lymph % (Auto) [place] % (Auto) Eos % (Auto) Baso % (Auto) Immature Gran # (Auto) Neut # (Auto) Lymph # (Auto) [place] # (Auto) Eos # (Auto) Baso # (Auto) APTT PTT Ratio Sodium Potassium Chloride Carbon Dioxide Anion Gap BUN Creatinine Est Cr Clr Drug Dosing Est GFR ( Amer) Est GFR (Non-Af Amer) BUN/Creatinine Ratio Glucose POC Glucose 178 H Estimat Average Glucose Pending Hemoglobin A1c Pending Calcium Magnesium Total Bilirubin AST ALT Alkaline Phosphatase Troponin I Total Protein Albumin Globulin Albumin/Globulin Ratio Triglycerides Cholesterol LDL Cholesterol, Calc VLDL Cholesterol, Calc HDL Cholesterol Cholesterol/HDL Ratio Lipase Beta-Hydroxybutyric Acd Nasal Screen MRSA (PCR) Medications Administered Current Inpatient Medications Acetaminophen (Tylenol) 500 mg PO HS PRN PRN Reason: Sleep Stop: 05/14/19 20:59 Hydrocodone Bitart/Acetaminophen ([place] 5/325) 1 tab PO Q6H PRN PRN Reason: Pain Stop: 04/28/19 17:02 Last Admin: 04/15/19 07:36 Dose: 1 tab Documented by: Aspirin (Ecotrin Ectab) 81 mg PO DAILY NINI Stop: 05/15/19 08:59 Last Admin: 04/15/19 08:08 Dose: 81 mg Documented by: Atorvastatin Calcium (Lipitor) 80 mg PO HS NINI Stop: 05/14/19 20:59 Last Admin: 04/14/19 20:44 Dose: 80 mg Documented by: Carvedilol (Coreg) 3.125 mg PO BID NINI Stop: 05/14/19 20:59 Last Admin: 04/15/19 08:08 Dose: 3.125 mg Documented by: Dextrose (Dextrose 50%) 25 - 50 ml IV UD PRN; Protocol PRN Reason: Hypoglycemia Protocol Stop: 05/14/19 11:10 Diphenhydramine HCl (Benadryl Capsule) 25 mg PO HS PRN PRN Reason: Sleep Stop: 05/14/19 20:59 Duloxetine HCl (Cymbalta) 30 mg PO DAILY NINI Stop: 05/15/19 08:59 Last Admin: 04/15/19 08:08 Dose: 30 mg Documented by: Fentanyl Citrate (Fentanyl Citrate) 25 mcg IV Q15M PRN PRN Reason: Pain Stop: 04/29/19 08:59 Furosemide (Lasix) 20 mg PO DAILY NINI Stop: 05/14/19 17:14 Last Admin: 04/15/19 08:09 Dose: 20 mg Documented by: Glucagon (Glucagen) 1 mg SQ UD PRN; Protocol PRN Reason: Hypoglycemia Protocol Stop: 05/14/19 11:10 Glucose (Dex4 Glucose) 4 - 8 tabs PO UD PRN; Protocol PRN Reason: Hypoglycemia Protocol Stop: 05/14/19 11:10 Glucose (Glucose 40%) 15 - 30 gm PO UD PRN; Protocol PRN Reason: Hypoglycemia Protocol Stop: 05/14/19 11:10 Heparin Sodium/Dextrose (Heparin Sodium/Dextrose) 25,000 units in 500 mls @ 0.02 mls/hr IV .Q24H [facility]; Protocol Stop: 05/15/19 08:59 Insulin Aspart (Novolog Flexpen) 0 units SC ACHS [facility]; Protocol Stop: 05/14/19 12:59 Last Admin: 04/15/19 07:45 Dose: 5 units Documented by: Insulin Glargine (Lantus Solostar Pen) 23 units SQ QAM [facility]; Protocol Stop: 05/15/19 08:59 Last Admin: 04/15/19 08:13 Dose: 23 units Documented by: Levetiracetam (Keppra) 750 mg PO BID [facility] Stop: 05/14/19 20:59 Last Admin: 04/15/19 08:08 Dose: 750 mg Documented by: Lisinopril (Zestril) 5 mg PO QAM [facility]INI Stop: 05/15/19 08:59 Last Admin: 04/15/19 08:12 Dose: 5 mg Documented by: Lorazepam (Ativan) 0.25 - 0.5 mg PO HS PRN PRN Reason: Sleep Stop: 05/14/19 12:20 Miscellaneous (Carbohydrates For Hypoglycemia) 15 - 30 gm PO UD PRN PRN Reason: Hypoglycemia Protocol Stop: 05/14/19 11:10 Miscellaneous (Icu Protocol For Hyperglycemia) 1 ea N/A PRN PRN; Protocol PRN Reason: Hyperglycemia Protocol Stop: 04/16/19 11:04 Miscellaneous Information (Consult Glycemic Management Pharmacy) 1 ea N/A UD PRN PRN Reason: Consult Stop: 05/14/19 18:01 Nitroglycerin (Nitrostat) 0.4 mg SL PRN PRN PRN Reason: CHEST PAIN Stop: 05/15/19 08:30 Nitroglycerin (Nitro-Bid 2%) 1 inch EXT Q6H [facility]I Stop: 05/15/19 09:14
[2019-04-15] MEDS: fentaNYL citrate 100 MCG/2 ML VIAL IV PRN ×4 (09:13→11:27)
[2019-04-15] MEDS ORDERED: HEPARIN 25000 UNIT/500 ML D5W IV ONE (09:23)
[2019-04-15] MEDS: NITROGLYCERIN 2% OINTMENT 30GM TUBE EXT SCH ×3 (09:31→20:57)
[2019-04-15] MEDS: HEPARIN SODIUM/DEXTROSE 25,000 UNITS/500 ML BAG IV SCH (09:35)
[2019-04-15] MEDS ORDERED: fentaNYL citrate 100 MCG/2 ML VIAL IV PRN (11:29)
[2019-04-15] MEDS ORDERED: fentaNYL DRIP 1,250 MCG/250 ML BAG IV SCH (12:00)
[2019-04-15] MEDS ORDERED: MoRPHine SULF/NSS 250 MG/250 ML BTL IV PRN (12:33)
--- NOTE | 2019-04-15 15:22 | Hospitalist Progress Note ---
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 Family opted against complex PCI treatment and is more interested in palliative care at this point. Intra-aortic balloon pump was removed overnight and the patient developed chest pain this morning with aggressive measures to control this including nitro, Vicodin, fentanyl pushes and now on morphine drip. Some nausea is present we will treat with antiemetics as needed. He is not clearly comfort care measures at this point a palliative is consult to continue the discussion tomorrow pending clinical progression. The patient is hypotensive from these various treatments and remains in the ICU as a result. Continue heparin, aspirin 81, Lipitor 80, chloride 3.125 p.o. twice daily, lisinopril 5 mg every morning so long as blood pressure can tolerate it. (2) Weakness of left side of body: Left upper extremity weakness present on exam. Patient reports this is secondary to history of stroke as well as severe osteoarthritis. (3) Diabetes mellitus type II, controlled: Glucose is more controlled and he remains on basal bolus insulin. Continue this during admission. (4) Seizure disorder: Continue Keppra per home regimen. (5) CHF (congestive heart failure), NYHA class II: Patient is euvolemic, continue Lasix 20 mg daily as long as blood pressure can tolerate. (6) DVT prophylaxis: Heparin drip DNR Disposition-pending clinical progression and patient wishes. Palliative care consultation for tomorrow to help sort out treatment goals with current clinical picture. Ivis Chen DO [facility] hospitalist Subjective 83 yo M feeling ill today, per he is worse than yesterday Reporting persistent chest pain that began this morning despite morphine drip, fentanyl pushes and vicodin trial. Continues on a morphine drip and has nitro paste in place. BP has been running low. Pt reports nausea, not eating much. at bedside and she states that the goal is to get him home. Review of Systems Review of Systems: All systems reviewed & are unremarkable except as noted in HPI & below Physical Exam Physical Exam: CONSTITUTIONAL: WNWD, vitals as above, generally ill-appearing EYES: normal conjunctivae, no scleral icterus ENT: MMM RESPIRATORY: clear to auscultation bilaterally, no crackles, rales or wheezes, normal respiratory effort CARDIOVASCULAR: regular rate and rhythm, S1 and 2 heard without murmurs, gallops or rubs, no peripheral edema GASTROINTESTINAL: soft, nontender, nondistended MUSCULOSKELETAL: general deconditioning and weakness but no apparent focal deficits. SKIN: warm and dry, R radial cath site was nontender and covered with a small gauze that was c/d/i. Radial pulse was 2+. L groin site was saad inspected without signs of hematoma, bruising or erythema. NEUROLOGIC: CN 2-12 grossly intact, normal cognition, Femoral pulse intact and extremities are NVI with BKA on the left PSYCHIATRIC: alert cooperative and oriented to person, place and time. Results & Data Vital Signs (Past 12 Hours) Vital Signs Temp Pulse Resp BP Pulse Ox 04/15/19 12:00 80 04/15/19 10:01 81 23 99 04/15/19 10:00 80 17 86/55 L 99 04/15/19 09:45 79 15 98 04/15/19 09:30 81 15 95 04/15/19 09:26 83 12 86/44 L 97 04/15/19 09:19 88 17 99/67 L 100 04/15/19 09:15 90 26 H 98 04/15/19 09:01 88 15 99 04/15/19 09:00 90 12 105/66 98 04/15/19 08:45 87 12 96 04/15/19 08:44 86 13 84/49 L 96 04/15/19 08:31 83 8 L 95 04/15/19 08:30 82 15 87/44 L 96 04/15/19 08:29 84 18 72/45 L 96 04/15/19 08:24 81 19 98/59 L 97 04/15/19 08:18 85 13 97/54 L 100 04/15/19 08:15 86 18 99 04/15/19 08:07 85 17 158/138 H 99 04/15/19 08:00 36.9 C 87 13 96 04/15/19 07:45 82 20 98 04/15/19 07:30 81 15 99 04/15/19 07:15 79 12 99 04/15/19 07:03 84 20 140/132 H 99 04/15/19 07:01 84 19 98 04/15/19 07:00 85 16 98 04/15/19 06:45 78 13 96 04/15/19 06:01 77 16 97 04/15/19 06:00 80 13 91/59 L 97 04/15/19 05:01 80 15 98 04/15/19 05:00 36.5 C 79 14 101/57 L 99 04/15/19 04:01 79 15 98 04/15/19 04:00 36.5 C 78 13 94/57 L 94 Laboratory Results Short CBC 04/15/19 Range/Units 05:23 WBC 9.47 (4.8-10.8) K/uL Hgb 11.5 L (14.0-18.0) g/dL Hct 35.2 L (42-52) % Plt Count 208 (130-400) K/uL BMP 04/14/19 04/15/19 17:39 05:23 Sodium 138 Potassium 4.0 D 4.3 Chloride 103 Carbon Dioxide 28 BUN 34 H Creatinine 1.07 Glucose 209 H Calcium 9.1 Medications Administered Current Inpatient Medications Acetaminophen (Tylenol) 500 mg PO HS PRN PRN Reason: Sleep Stop: 05/14/19 20:59 Hydrocodone Bitart/Acetaminophen ([place] 5/325) 1 tab PO Q6H PRN PRN Reason: Pain Stop: 04/28/19 17:02 Last Admin: 04/15/19 07:36 Dose: 1 tab Documented by: Aspirin (Ecotrin Ectab) 81 mg PO DAILY NINI Stop: 05/15/19 08:59 Last Admin: 04/15/19 08:08 Dose: 81 mg Documented by: Atorvastatin Calcium (Lipitor) 80 mg PO HS NINI Stop: 05/14/19 20:59 Last Admin: 04/14/19 20:44 Dose: 80 mg Documented by: Carvedilol (Coreg) 3.125 mg PO BID NINI Stop: 05/14/19 20:59 Last Admin: 04/15/19 08:08 Dose: 3.125 mg Documented by: Dextrose (Dextrose 50%) 25 - 50 ml IV UD PRN; Protocol PRN Reason: Hypoglycemia Protocol Stop: 05/14/19 11:10 Diphenhydramine HCl (Benadryl Capsule) 25 mg PO HS PRN PRN Reason: Sleep Stop: 05/14/19 20:59 Duloxetine HCl (Cymbalta) 30 mg PO DAILY NINI Stop: 05/15/19 08:59 Last Admin: 04/15/19 08:08 Dose: 30 mg Documented by: Furosemide (Lasix) 20 mg PO DAILY NINI Stop: 05/14/19 17:14 Last Admin: 04/15/19 08:09 Dose: 20 mg Documented by: Glucagon (Glucagen) 1 mg SQ UD PRN; Protocol PRN Reason: Hypoglycemia Protocol Stop: 05/14/19 11:10 Glucose (Dex4 Glucose) 4 - 8 tabs PO UD PRN; Protocol PRN Reason: Hypoglycemia Protocol Stop: 05/14/19 11:10 Glucose (Glucose 40%) 15 - 30 gm PO UD PRN; Protocol PRN Reason: Hypoglycemia Protocol Stop: 05/14/19 11:10 Heparin Sodium/Dextrose (Heparin Sodium/Dextrose) 25,000 units in 500 mls @ 30 mls/hr IV .[id number] [facility]; Protocol Stop: 05/15/19 08:59 Last Admin: 04/15/19 09:35 Dose: 1,500 units/hr, 30 mls/hr Documented by: Morphine Sulfate (Morphine Sulf/Nss) 250 mg in 250 mls @ 4 mls/hr IV .Q24H PRN; Protocol PRN Reason: Pain Stop: 04/29/19 12:32 Last Titration: 04/15/19 15:15 Dose: 4 mg/hr, 4 mls/hr Documented by: Insulin Aspart (Novolog Flexpen) 0 units SC ACHS [facility]; Protocol Stop: 05/14/19 12:59 Last Admin: 04/15/19 11:35 Dose: 6 units Documented by: Insulin Glargine (Lantus Solostar Pen) 23 units SQ QAM [facility]; Protocol Stop: 05/15/19 08:59 Last Admin: 04/15/19 08:13 Dose: 23 units Documented by: Levetiracetam (Keppra) 750 mg PO BID [facility] Stop: 05/14/19 20:59 Last Admin: 04/15/19 08:08 Dose: 750 mg Documented by: Lisinopril (Zestril) 5 mg PO QAM [facility]INI Stop: 05/15/19 08:59 Last Admin: 04/15/19 08:12 Dose: 5 mg Documented by: Lorazepam (Ativan) 0.25 - 0.5 mg PO HS PRN PRN Reason: Sleep Stop: 05/14/19 12:20 Miscellaneous (Carbohydrates For Hypoglycemia) 15 - 30 gm PO UD PRN PRN Reason: Hypoglycemia Protocol Stop: 05/14/19 11:10 Miscellaneous (Icu Protocol For Hyperglycemia) 1 ea N/A PRN PRN; Protocol PRN Reason: Hyperglycemia Protocol Stop: 04/16/19 11:04 Miscellaneous Information (Consult Glycemic Management Pharmacy) 1 ea N/A UD P RN PRN Reason: Consult Stop: 05/14/19 18:01 Nitroglycerin (Nitrostat) 0.4 mg SL PRN PRN PRN Reason: CHEST PAIN Stop: 05/15/19 08:30 Last Admin: 04/15/19 09:20 Dose: 0.4 mg Documented by: Nitroglycerin (Nitro-Bid 2%) 1 inch EXT Q6H [facility]INI Stop: 05/15/19 09:14 Last Admin: 04/15/19 15:21 Dose: 1 inch Documented by:
[2019-04-15 15:39] LABS: Partial Thromboplastin Ratio 3.7
[2019-04-15 15:42] LABS: Partial Thromboplastin Time 99.6 Seconds (21.0-31.0)
[2019-04-15] MEDS: ONDANSETRON 4 MG OD TAB PO PRN (16:40)
--- NOTE | 2019-04-15 16:58 | Critical Care Progress Note ---
Date of Service April 15, 2019 Assessment & Plan (1) Admitted to intensive care unit: Reason Critically Ill: Acute myocardial infarction requiring intra-aortic balloon pump PLAN: Neuro: History of CVA with residual deficits Probable Resp: Dyspnea -Likely related to cardiac disease CV: Triple-vessel disease -Intra-aortic balloon pump removed yesterday -Now having chest pain optimizing to the best of our ability with nitrates as well as heparin -Instituted morphine infusion given significant narcotic needs -Discussed with family this is a end-stage medical condition without meaningful chance of recovery they do not want to undergo cardiac bypass or advanced coronary artery stenting -End-tidal CO2 with morphine infusion -If patient completes infarct hopefully pain will resolve Fluids/Renal: Mild hyperkalemia: Resolved Elevated creatinine : Improved ID: Monitor fever curve GI/Nutrition: Diet as tolerated Heme: Anemia DVT prophylaxis: Heparin infusion Endocrine: ICU hyperglycemia protocol Vascular access: peripheral IVs Code Status: DNR/DNI -On comfort measures goal is to hopefully transition to home palliative care. Patient does remain critically ill with presumptive active cardiac ischemia (2) Acute WA: (3) Chest pain: (4) Weakness of left side of body: Subjective Patient largely in good spirits reports he is having 6 out of 10 chest pain however on repeat evaluation he describes not having significant chest pain. Patient's complaints wax and wane and I believe there is aspects of vascular dementia which is complicating his understanding of the current situation as well as some of his complaints. He ultimately desires that he wants to go home as soon as possible Review of Systems Eyes: as per Subjective / HPI Physical Exam Physical Exam: General: Alert. nontoxic. Skin: Warm, dry, Head: Atraumatic Ears, nose, mouth and throat: airway patent Cardiovascular: Normal peripheral perfusion Respiratory: no respiratory distress Gastrointestinal: Non distended Results & Data Vital Signs (Past 12 Hours) Vital Signs Temp Pulse Resp BP Pulse Ox 04/15/19 12:00 80 04/15/19 10:01 81 23 99 04/15/19 10:00 80 17 86/55 L 99 04/15/19 09:45 79 15 98 04/15/19 09:30 81 15 95 04/15/19 09:26 83 12 86/44 L 97 04/15/19 09:19 88 17 99/67 L 100 04/15/19 09:15 90 26 H 98 04/15/19 09:01 88 15 99 04/15/19 09:00 90 12 105/66 98 04/15/19 08:45 87 12 96 04/15/19 08:44 86 13 84/49 L 96 04/15/19 08:31 83 8 L 95 04/15/19 08:30 82 15 87/44 L 96 04/15/19 08:29 84 18 72/45 L 96 04/15/19 08:24 81 19 98/59 L 97 04/15/19 08:18 85 13 97/54 L 100 04/15/19 08:15 86 18 99 04/15/19 08:07 85 17 158/138 H 99 04/15/19 08:00 36.9 C 87 13 96 04/15/19 07:45 82 20 98 04/15/19 07:30 81 15 99 04/15/19 07:15 79 12 99 04/15/19 07:03 84 20 140/132 H 99 04/15/19 07:01 84 19 98 04/15/19 07:00 85 16 98 04/15/19 06:45 78 13 96 04/15/19 06:01 77 16 97 04/15/19 06:00 80 13 91/59 L 97 04/15/19 05:01 80 15 98 04/15/19 05:00 36.5 C 79 14 101/57 L 99 Laboratory Results 04/15/19 04/15/19 04/15/19 Range/Units 16:35 15:08 11:33 WBC (4.8-10.8) K/uL RBC (4.7-6.1) M/uL Hgb (14.0-18.0) g/dL Hct (42-52) % MCV (80-100) fL MCH (25-34) pg MCHC (32-36) g/dL RDW Std Deviation (36.4-46.3) fL RDW Coeff of Roderick (11.5-14.5) % Plt Count (130-400) K/uL MPV (7.4-10.4) fL Immature Gran % (Auto) % Neut % (Auto) % Lymph % (Auto) % [place] % (Auto) % Eos % (Auto) % Baso % (Auto) % Immature Gran # (Auto) (0.00-0.02) K/uL Neut # (Auto) (1.4-6.5) K/uL Lymph # (Auto) (1.2-3.4) K/uL [place] # (Auto) (0.11-0.59) K/uL Eos # (Auto) (0-0.5) K/uL Baso # (Auto) (0-0.2) K/uL APTT 99.6 H* (21.0-31.0) Seconds PTT Ratio 3.7 Sodium (136-145) mmol/L Potassium (3.5-5.1) mmol/L Chloride (98-107) mmol/L Carbon Dioxide (21-32) mmol/L Anion Gap (3-11) BUN (7-18) mg/dl Creatinine (0.6-1.4) mg/dl Est Cr Clr Drug Dosing ml/min Est GFR ( Amer) Est GFR (Non-Af Amer) BUN/Creatinine Ratio (10-20) Glucose (70-99) mg/dl POC Glucose 246 H 239 H (70-99) Estimat Average Glucose Hemoglobin A1c Calcium (8.5-10.1) mg/dl Magnesium (1.8-2.4) mg/dl Triglycerides (0-150) mg/dl Cholesterol (0-200) mg/dl LDL Cholesterol, Calc mg/dl VLDL Cholesterol, Calc mg/dl HDL Cholesterol mg/dl Cholesterol/HDL Ratio 04/15/19 04/15/19 04/15/19 Range/Units 07:30 05:23 05:23 WBC (4.8-10.8) K/uL RBC (4.7-6.1) M/uL Hgb (14.0-18.0) g/dL Hct (42-52) % MCV (80-100) fL MCH (25-34) pg MCHC (32-36) g/dL RDW Std Deviation (36.4-46.3) fL RDW Coeff of Roderick (11.5-14.5) % Plt Count (130-400) K/uL MPV (7.4-10.4) fL Immature Gran % (Auto) % Neut % (Auto) % Lymph % (Auto) % [place] % (Auto) % Eos % (Auto) % Baso % (Auto) % Immature Gran # (Auto) (0.00-0.02) K/uL Neut # (Auto) (1.4-6.5) K/uL Lymph # (Auto) (1.2-3.4) K/uL [place] # (Auto) (0.11-0.59) K/uL Eos # (Auto) (0-0.5) K/uL Baso # (Auto) (0-0.2) K/uL APTT (21.0-31.0) Seconds PTT Ratio Sodium 138 (136-145) mmol/L Potassium 4.3 (3.5-5.1) mmol/L Chloride 103 (98-107) mmol/L Carbon Dioxide 28 (21-32) mmol/L Anion Gap 7.0 (3-11) BUN 34 H (7-18) mg/dl Creatinine 1.07 (0.6-1.4) mg/dl Est Cr Clr Drug Dosing 61.2 ml/min Est GFR ( Amer) 75.1 Est GFR (Non-Af Amer) 64.8 BUN/Creatinine Ratio 31.5 H (10-20) Glucose 209 H (70-99) mg/dl POC Glucose 178 H (70-99) Estimat Average Glucose Pending Hemoglobin A1c Pending Calcium 9.1 (8.5-10.1) mg/dl Magnesium 2.0 (1.8-2.4) mg/dl Triglycerides 197 H (0-150) mg/dl Cholesterol 130 (0-200) mg/dl LDL Cholesterol, Calc 53 mg/dl VLDL Cholesterol, Calc 39 mg/dl HDL Cholesterol 38 mg/dl Cholesterol/HDL Ratio 3 04/15/19 04/15/19 04/14/19 Range/Units 05:23 04:04 23:49 WBC 9.47 (4.8-10.8) K/uL RBC 4.12 L (4.7-6.1) M/uL Hgb 11.5 L (14.0-18.0) g/dL Hct 35.2 L (42-52) % MCV 85.4 (80-100) fL MCH 27.9 (25-34) pg MCHC 32.7 (32-36) g/dL RDW Std Deviation 50.8 H (36.4-46.3) fL RDW Coeff of Roderick 16.4 H (11.5-14.5) % Plt Count 208 (130-400) K/uL MPV 10.8 H (7.4-10.4) fL Immature Gran % (Auto) 0.3 % Neut % (Auto) 73.4 % Lymph % (Auto) 15.3 % [place] % (Auto) 8.8 % Eos % (Auto) 2.0 % Baso % (Auto) 0.2 % Immature Gran # (Auto) 0.03 H (0.00-0.02) K/uL Neut # (Auto) 6.95 H (1.4-6.5) K/uL Lymph # (Auto) 1.45 (1.2-3.4) K/uL [place] # (Auto) 0.83 H (0.11-0.59) K/uL Eos # (Auto) 0.19 (0-0.5) K/uL Baso # (Auto) 0.02 (0-0.2) K/uL APTT (21.0-31.0) Seconds PTT Ratio Sodium (136-145) mmol/L Potassium (3.5-5.1) mmol/L Chloride (98-107) mmol/L Carbon Dioxide (21-32) mmol/L Anion Gap (3-11) BUN (7-18) mg/dl Creatinine (0.6-1.4) mg/dl Est Cr Clr Drug Dosing ml/min Est GFR ( Amer) Est GFR (Non-Af Amer) BUN/Creatinine Ratio (10-20) Glucose (70-99) mg/dl POC Glucose 218 H 202 H (70-99) Estimat Average Glucose Hemoglobin A1c Calcium (8.5-10.1) mg/dl Magnesium (1.8-2.4) mg/dl Triglycerides (0-150) mg/dl Cholesterol (0-200) mg/dl LDL Cholesterol, Calc mg/dl VLDL Cholesterol, Calc mg/dl HDL Cholesterol mg/dl Cholesterol/HDL Ratio 04/14/19 04/14/19 04/14/19 Range/Units 20:38 17:39 17:39 WBC (4.8-10.8) K/uL RBC (4.7-6.1) M/uL Hgb (14.0-18.0) g/dL Hct (42-52) % MCV (80-100) fL MCH (25-34) pg MCHC (32-36) g/dL RDW Std Deviation (36.4-46.3) fL RDW Coeff of Roderick (11.5-14.5) % Plt Count (130-400) K/uL MPV (7.4-10.4) fL Immature Gran % (Auto) % Neut % (Auto) % Lymph % (Auto) % [place] % (Auto) % Eos % (Auto) % Baso % (Auto) % Immature Gran # (Auto) (0.00-0.02) K/uL Neut # (Auto) (1.4-6.5) K/uL Lymph # (Auto) (1.2-3.4) K/uL [place] # (Auto) (0.11-0.59) K/uL Eos # (Auto) (0-0.5) K/uL Baso # (Auto) (0-0.2) K/uL APTT 89.4 H* (21.0-31.0) Seconds PTT Ratio 3.3 Sodium (136-145) mmol/L Potassium 4.0 D (3.5-5.1) mmol/L Chloride (98-107) mmol/L Carbon Dioxide (21-32) mmol/L Anion Gap (3-11) BUN (7-18) mg/dl Creatinine (0.6-1.4) mg/dl Est Cr Clr Drug Dosing ml/min Est GFR ( Amer) Est GFR (Non-Af Amer) BUN/Creatinine Ratio (10-20) Glucose (70-99) mg/dl POC Glucose 228 H (70-99) Estimat Average Glucose Hemoglobin A1c Calcium (8.5-10.1) mg/dl Magnesium (1.8-2.4) mg/dl Triglycerides (0-150) mg/dl Cholesterol (0-200) mg/dl LDL Cholesterol, Calc mg/dl VLDL Cholesterol, Calc mg/dl HDL Cholesterol mg/dl Cholesterol/HDL Ratio Coding Level of Care Code Critical Care 1st 30-74 mins Diagnoses Admitted to intensive care unit Z78.9 Acute WA I21.9 Involved coronary artery: unspecified coronary artery Myocardial infarction type: unspecified Chest pain I20.0 Chest pain type: chest pain due to myocardial ischemia Ischemic chest pain type: unstable angina pectoris Weakness of left side of body R53.1 Time Spent (min) 60 Comment I have personally spent 60 minutes of critical care time in the direct management of this patient. This is a life/limb threatening event. This includes time spent evaluating patient, direct bedside care, chart review, placing orders, interpretation of diagnostic studies, discussion with consultants, patient, and/or family members regarding treatment decisions, as well as other required patient management activities. This time is exclusive of all separately billable procedures, and teaching time and separate from and in addition to any other critical care service time. (1) Acute WA Involved coronary artery: unspecified coronary artery Myocardial infarction type: unspecified Qualified Code(s): I21.9 - Acute myocardial infarction, unspecified (2) Chest pain Chest pain type: chest pain due to myocardial ischemia Ischemic chest pain type: unstable angina pectoris Qualified Code(s): I20.0 - Unstable angina
[2019-04-15] MEDS: ATORVASTATIN 40 MG TAB PO SCH (20:57)
[2019-04-16 00:04] LABS: Partial Thromboplastin Ratio 4.1
[2019-04-16 00:08] LABS: Partial Thromboplastin Time 110.7 Seconds (21.0-31.0)
[2019-04-16] MEDS: NITROGLYCERIN 2% OINTMENT 30GM TUBE EXT SCH ×2 (04:56→10:21)
[2019-04-16] MEDS: HEPARIN SODIUM/DEXTROSE 25,000 UNITS/500 ML BAG IV SCH (04:59)
[2019-04-16 05:41] LABS: Estimated Average Glucose 203 mg/dl; Hemoglobin A1C 8.7 % (4.5-5.6)
--- NOTE | 2019-04-16 06:30 | Critical Care Progress Note ---
Date of Service April 16, 2019 Results & Data Vital Signs (Past 12 Hours) Vital Signs Temp Pulse BP Pulse Ox 04/16/19 06:00 70 95 04/16/19 05:04 71 95 04/16/19 05:03 74 78/45 L 93 04/16/19 05:00 72 91 04/16/19 04:28 79 64/38 L 96 04/16/19 04:00 75 92 04/16/19 03:00 75 93 04/16/19 02:00 74 91 04/16/19 01:00 74 94 04/16/19 00:00 76 92 04/15/19 23:01 78 93 04/15/19 22:00 75 94 04/15/19 21:00 82 92 04/15/19 20:52 83 72/39 L 92 04/15/19 20:38 92 H 04/15/19 19:46 89 75/48 L 95 04/15/19 19:45 36.8 C 88 77/46 L 96
[2019-04-16] MEDS ORDERED: MoRPHine SULFATE 4 MG/ML 1 ML CARP\\VIAL IV PRN (07:39)
[2019-04-16] MEDS ORDERED: MoRPHine SULFATE 2 MG/ML CARP IV PRN (07:39)
[2019-04-16] MEDS ORDERED: ENOXAPARIN 1 MG/KG SC SCH (07:45)
[2019-04-16] MEDS: INSULIN ASPART 100 UNITS/ML 3 ML PEN SC SCH ×3 (08:44→17:13)
[2019-04-16] MEDS ORDERED: ENOXAPARIN 100 MG/1ML SYR SQ SCH (09:00)
--- NOTE | 2019-04-16 09:09 | Cardiology Progress Note ---
Date of Service April 16, 2019 Assessment & Plan (1) Coronary arteriosclerosis in [place] artery: (2) Non-STEMI (non-ST elevated myocardial infarction): (3) Seizure disorder: (4) Status post below knee amputation: (5) Status post carotid endarterectomy: (6) CHF (congestive heart failure), NYHA class II: The patient is somnolent but arousable. His morphine was discontinued this morning due to low blood pressure. He also has low urine output. I agree with stopping the morphine and hopefully his blood pressure will improve along with his urine output. Also hopefully, he is completed his infarct and will no longer have any chest discomfort. I had a long discussion with the family. Their goal would be supportive care, no heroics and hopefully at some point he may be able to return home with his family. Palliative care is to see them today and perhaps home with hospice would be the most benefit. Subjective The patient had a very quiet night. He slept through the night. I had a long discussion with his and [id number] this morning. Their goal would be that he would be well enough to hopefully at some point return home. They understand he is terminal but if he could be made well enough to spend some time with his family at home that is what they would want. Palliative care is to see him today. I think eventually, possibly home with hospice. Review of Systems Review of Systems: Unobtainable due to cognitive status Physical Exam Physical Exam: General: The patient is somnolent but arousable. Head: normocephalic, no masses, lesions, tenderness or abnormalities Eyes: conjunctiva are pink and non-injected, sclera clear Neck: supple, no adenopathy, no bruits, normal jugular venous pulse, no hepatojugular reflux Chest: normal shape and normal respiratory effort Lungs: clear to auscultation and percussion Cardiac Exam: - regular rate & rhythm, no murmurs gallops or rubs - normal S1, normal S2 Pulses: 2(+) throughout Abdomen: abdomen soft, non-tender, no abnormal masses and no hepatosplenomegaly Musculoskeletal: no gait disturbance, no joint inflammation, no deforming arthritis Extremities: BKA Neuro: grossly normal exam Results & Data Vital Signs (Past 12 Hours) Vital Signs Pulse BP Pulse Ox 04/16/19 06:00 70 95 04/16/19 05:04 71 95 04/16/19 05:03 74 78/45 L 93 04/16/19 05:00 72 91 04/16/19 04:28 79 64/38 L 96 04/16/19 04:00 75 92 04/16/19 03:00 75 93 04/16/19 02:00 74 91 04/16/19 01:00 74 94 04/16/19 00:00 76 92 04/15/19 23:01 78 93 04/15/19 22:00 75 94 Laboratory Results Laboratory Results - last 24 hr 04/15/19 04/15/19 04/15/19 05:23 11:33 15:08 APTT 99.6 H* PTT Ratio 3.7 POC Glucose 239 H Estimat Average Glucose 203 Hemoglobin A1c 8.7 H 04/15/19 04/15/19 04/15/19 16:35 20:49 22:43 APTT 110.7 H* PTT Ratio 4.1 POC Glucose 246 H 253 H Estimat Average Glucose Hemoglobin A1c Medications Administered Current Inpatient Medications Acetaminophen (Tylenol) 500 mg PO HS PRN PRN Reason: Sleep Stop: 05/14/19 20:59 Last Admin: 04/15/19 19:56 Dose: 500 mg Documented by: Hydrocodone Bitart/Acetaminophen ([place] 5/325) 1 tab PO Q6H PRN PRN Reason: Pain Stop: 04/28/19 17:02 Last Admin: 04/15/19 07:36 Dose: 1 tab Documented by: Aspirin (Ecotrin Ectab) 81 mg PO DAILY NINI Stop: 05/15/19 08:59 Last Admin: 04/15/19 08:08 Dose: 81 mg Documented by: Atorvastatin Calcium (Lipitor) 80 mg PO HS NINI Stop: 05/14/19 20:59 Last Admin: 04/15/19 20:57 Dose: 80 mg Documented by: Carvedilol (Coreg) 3.125 mg PO BID NINI Stop: 05/14/19 20:59 Last Admin: 04/15/19 20:56 Dose: Not Given Documented by: Dextrose (Dextrose 50%) 25 - 50 ml IV UD PRN; Protocol PRN Reason: Hypoglycemia Protocol Stop: 05/14/19 11:10 Diphenhydramine HCl (Benadryl Capsule) 25 mg PO HS PRN PRN Reason: Sleep Stop: 12/23/19 20:59 Duloxetine HCl (Cymbalta) 30 mg PO DAILY NINI Stop: 05/15/19 08:59 Last Admin: 04/15/19 08:08 Dose: 30 mg Documented by: Enoxaparin Sodium (Lovenox) 90 mg SQ Q12H NINI Stop: 05/16/19 08:59 Last Admin: 04/16/19 08:41 Dose: 90 mg Documented by: Furosemide (Lasix) 20 mg PO DAILY NINI Stop: 05/14/19 17:14 Last Admin: 04/15/19 08:09 Dose: 20 mg Documented by: Glucagon (Glucagen) 1 mg SQ UD PRN; Protocol PRN Reason: Hypoglycemia Protocol Stop: 05/14/19 11:10 Glucose (Dex4 Glucose) 4 - 8 tabs PO UD PRN; Protocol PRN Reason: Hypoglycemia Protocol Stop: 05/14/19 11:10 Glucose (Glucose 40%) 15 - 30 gm PO UD PRN; Protocol PRN Reason: Hypoglycemia Protocol Stop: 05/14/19 11:10 Insulin Aspart (Novolog Flexpen) 0 units SC ACHS [facility]; Protocol Stop: 05/14/19 12:59 Last Admin: 04/16/19 08:44 Dose: 8 units Documented by: Insulin Glargine (Lantus Solostar Pen) 23 units SQ QAM [facility]; Protocol Stop: 05/15/19 08:59 Last Admin: 04/15/19 08:13 Dose: 23 units Documented by: Levetiracetam (Keppra) 750 mg PO BID [facility] Stop: 05/14/19 20:59 Last Admin: 04/15/19 20:58 Dose: 750 mg Documented by: Lisinopril (Zestril) 5 mg PO QAM [facility] Stop: 05/15/19 08:59 Last Admin: 04/15/19 08:12 Dose: 5 mg Documented by: Lorazepam (Ativan) 0.25 - 0.5 mg PO HS PRN PRN Reason: Sleep Stop: 05/14/19 12:20 Last Admin: 04/15/19 20:58 Dose: 0.25 mg Documented by: Miscellaneous (Carbohydrates For Hypoglycemia) 15 - 30 gm PO UD PRN PRN Reason: Hypoglycemia Protocol Stop: 05/14/19 11:10 Miscellaneous (Icu Protocol For Hyperglycemia) 1 ea N/A PRN PRN; Protocol PRN Reason: Hyperglycemia Protocol Stop: 04/16/19 11:04 Miscellaneous Information (Consult Glycemic Management Pharmacy) 1 ea N/A UD PRN PRN Reason: Consult Stop: 05/14/19 18:01 Morphine Sulfate (Morphine Sulfate) 2 mg IV Q2H PRN PRN Reason: Moderate Pain (4,5,6) Stop: 04/30/19 07:38 Morphine Sulfate (Morphine Sulfate) 4 mg IV Q2H PRN PRN Reason: Severe Pain (7,8,9,10) Stop: 04/30/19 07:38 Nitroglycerin (Nitrostat) 0.4 mg SL PRN PRN PRN Reason: CHEST PAIN Stop: 05/15/19 08:30 Last Admin: 04/15/19 09:20 Dose: 0.4 mg Documented by: Nitroglycerin (Nitro-Bid 2%) 1 inch EXT Q6H NINI Stop: 05/15/19 09:14 Last Admin: 04/16/19 04:56 Dose: Not Given Documented by: Ondansetron HCl (Zofran Odt) 4 mg PO Q6H PRN PRN Reason: Nausea Stop: 05/15/19 16:27 Last Admin: 04/15/19 16:40 Dose: 4 mg Documented by:
--- NOTE | 2019-04-16 09:09 | Critical Care Progress Note ---
Date of Service April 16, 2019 Assessment & Plan (1) Admitted to intensive care unit: Reason Critically Ill: Acute myocardial infarction requiring intra-aortic balloon pump. Not a candidate for percutaneous intervention or coronary artery bypass grafting. Transitioned to morphine infusion last night for pain issues but family wants to continue treatment at this point time. They are not ready to transition completely to comfort care. I met with the at bedside and had an extensive discussion with her and discussed the case with cardiology. PLAN: Neuro: History of CVA with residual deficits Continue supportive care Resp: Dyspnea Appears well controlled with morphine. Will discontinue infusion and transition to PRN boluses. CV: Triple-vessel disease -Intra-aortic balloon pump removed 04/14 -Now having chest pain optimizing to the best of our ability with nitrates as well as heparin -Instituted morphine infusion given significant narcotic needs -Discussed with family this is a end-stage medical condition without meaningful chance of recovery they do not want to undergo cardiac bypass or advanced coronary artery stenting -Patient's wants to continue care in the hopes that there is some recoverable function. She would like to get him home. She understands the gravity of his current situation and does not want aggressive measures taken including CPR, ACLS, intubation, or additional coronary procedures but does want to continue with medications. Limited right now as the patient cannot tolerate goal-directed therapy due to the hemodynamic issues. Fluids/Renal: Mild hyperkalemia: Resolved Elevated creatinine Continue to follow ID: Monitor fever curve GI/Nutrition: Diet as tolerated Heme: Anemia On full dose heparin. Due to monitoring issues we will transition him to full dose Lovenox. This can be addressed as to whether or not this should be continued in the long-term. Endocrine: hyperglycemia protocol Vascular access: peripheral IVs Code Status: DNR/DNI Confirmed DNR/DNI status. Again the goal is to continue medical therapy and see whether not the patient responds enough to be eligible to go home. Palliative care consultation is pending. Again the would like to continue medical treatment at this point time and is not ready to consider transition to complete comfort care at this time. Patient is appropriate for transfer out of the ICU. Discussed the case with the attending hospitalist. Will sign off once he leaves the ICU. (2) Acute NV: (3) Chest pain: (4) Weakness of left side of body: Subjective Patient seen and examined. EMR reviewed. Discussed with PATRICE from overnight service. The patient is maintained on a morphine infusion. He is somnolent today. His hemodynamics remained marginal. He denies pain when he is awake and. Review of Systems Review of Systems: Unobtainable due to cognitive status Physical Exam Physical Exam: CONSTITUTIONAL: Somnolent. Arouses to verbal and tactile stimulus somewhat EYES: normal conjunctivae, no scleral icterus ENT: MMM RESPIRATORY: clear to auscultation bilaterally, no crackles, rales or wheezes, normal respiratory effort CARDIOVASCULAR: regular rate and rhythm, S1 and 2 heard without murmurs, gallops or rubs, no peripheral edema GASTROINTESTINAL: soft, nontender, nondistended MUSCULOSKELETAL: general deconditioning and weakness but no apparent focal defi cits. SKIN: warm and dry, R radial cath site was nontender and covered with a small gauze that was c/d/i. Radial pulse was 2+. L groin site was saad inspected without signs of hematoma, bruising or erythema. NEUROLOGIC: normal cognition, Femoral pulse intact and extremities are NVI with BKA on the left PSYCHIATRIC: Sedated Results & Data Vital Signs (Past 12 Hours) Vital Signs Pulse BP Pulse Ox 04/16/19 06:00 70 95 04/16/19 05:04 71 95 04/16/19 05:03 74 78/45 L 93 04/16/19 05:00 72 91 04/16/19 04:28 79 64/38 L 96 04/16/19 04:00 75 92 04/16/19 03:00 75 93 04/16/19 02:00 74 91 04/16/19 01:00 74 94 04/16/19 00:00 76 92 04/15/19 23:01 78 93 04/15/19 22:00 75 94 Laboratory Results 04/15/19 05:23 04/15/19 05:23 Diagnostic Findings No new imaging Coding Level of Care Code Critical Care 1st 30-74 mins Diagnoses Admitted to intensive care unit Z78.9 Acute NV I21.9 Involved coronary artery: unspecified coronary artery Myocardial infarction type: unspecified Chest pain I20.0 Chest pain type: chest pain due to myocardial ischemia Ischemic chest pain type: unstable angina pectoris Weakness of left side of body R53.1 Time Spent (min) 45 Comment 45 minutes including end-of-life discussions. (1) Acute [place] Involved coronary artery: unspecified coronary artery Myocardial infarction type: unspecified Qualified Code(s): I21.9 - Acute myocardial infarction, unspecified (2) Chest pain Chest pain type: chest pain due to myocardial ischemia Ischemic chest pain type: unstable angina pectoris Qualified Code(s): I20.0 - Unstable angina
[2019-04-16 09:43] LABS: Basophils # (auto) 0.03 K/uL (0-0.2); Basophils % (auto) 0.3 %; Eosinophils # (auto) 0.11 K/uL (0-0.5); Hematocrit (blood only) 31.4 % (42-52); Hemoglobin 9.9 g/dL (14.0-18.0); Immature Granulocytes # (auto) 0.04 K/uL (0.00-0.02); Immature Granulocytes % (auto) 0.4 %; Lymphocytes # (auto) 1.72 K/uL (1.2-3.4); Lymphocytes % (auto) 15.3 %; Mean Corpuscular Hemoglobin 27.4 pg (25-34); Mean Corpuscular Hgb Conc 31.5 g/dL (32-36); Mean Platelet Volume 10.8 fL (7.4-10.4); Monocytes # (auto) 1.09 K/uL (0.11-0.59); Monocytes % (auto) 9.7 %; Neutrophils # (auto) 8.25 K/uL (1.4-6.5); Neutrophils % (auto) 73.3 %; Platelet Count 239 K/uL (130-400); RDW Coefficient of Variation 16.7 % (11.5-14.5); RDW Standard Deviation 52.7 fL (36.4-46.3); Red Blood Count 3.61 M/uL (4.7-6.1); White Blood Count 11.24 K/uL (4.8-10.8)
--- NOTE | 2019-04-16 09:59 | XRay Report ---
XR chest 1V portable CLINICAL HISTORY: Abnormal chest x-ray. Follow-up examination. COMPARISON STUDY: 04/14/2019 FINDINGS: The heart is borderline enlarged. There is persistent interstitial thickening. There is bee n improvement in the previously described left lung airspace opacities. There is no lobar consolidati on. There are no significant pleural effusions. IMPRESSION: 1. Persistent interstitial thickening 2. Resolving left lung airspace opacities Electronically signed by: Jeffrey Donnelly M.D. 04/16/2019 9:57 AM
[2019-04-16] MEDS: ONDANSETRON 4 MG OD TAB PO PRN (10:01)
[2019-04-16 10:13] LABS: Calcium 8.9 mg/dl (8.5-10.1); Creatinine Clr Calc Pharmacy 27.9 ml/min; Potassium 4.9 mmol/L (3.5-5.1)
[2019-04-16] MEDS: carvediloL 3.125 MG TAB PO SCH ×2 (10:19→22:06)
[2019-04-16] MEDS: levETIRAcetam 250 MG TAB PO SCH ×2 (11:07→11:26)
[2019-04-16] MEDS: DULOXETINE HCL 30 MG CAP PO SCH ×2 (11:08→11:26)
[2019-04-16] MEDS: INSULIN GLARGINE SOLOSTAR 100 UNITS/ML 3 ML PEN SQ SCH (11:08)
[2019-04-16] MEDS: ASPIRIN 81 MG ECTAB PO SCH ×2 (11:08→11:26)
--- NOTE | 2019-04-16 11:09 | Palliative Care Consultation ---
Date of Consultation April 16, 2019 Assessment & Plan (1) Goals of care, counseling/discussion: -83 year old male patient with PMH diabetes, CAD, history of heart failure with preserved EF, hypertension, history of ischemic right MCA stroke, left hemiparesis, seizure disorder, DM, status post BKA of the left lower extremity, and others, presented to the hospital a few days ago with c/o chest pain and SOB. He was found to have ST elevation and troponin 2.3. He underwent emergency cardiac catheterization and was found to have triple vessel disease. Post-cath, he was on aortic balloon pump for support. In talking with the family, they apparently did not want to transfer the patient to tertiary care given his poor candidacy for surgery. The decision was made to keep patient here and focus on comfort. At baseline, patient has been wheelchair bound since 2012 and has recently been dealing with a new diagnosis of hydrocephalus per the patient's . Palliative care is now consulted to assist with establishing goals of care. -Met with the patient and his , Roes, in room 106. Patient is finally resting comfortably, has been confused and somewhat agitated/restless this morning. He was previously on a morphine gtt but was too obtunded, so family spoke with Dr. Killian and they decided to transition to PRN morphine. Patient is no longer on balloon pump and is now quite hypotensive. He has had no urine output, creatinine has frank from 1.07 to 2.35. -Patient's stated that the overarching goal is for comfort. She does want to continue drawing blood work, mostly for prognostic purposes to see if patient is in fact worsening. The plan is to allow nature to take its course. Patient's would really love to get patient home on hospice, but also understands that he could pass away in the hospital. -NO ESCALATION IN CARE: no pressors, no intubation, no CPR. Can continue patient's regular oral meds if he is awake enough and able to take them, but he currently is not. -Again, if patient stabilizes and is able to get home, that would be 's preference. If he continues to decline, he may pass away here in the hospital. Given patient's triple vessel disease and continued hypotension, it is not likely that he will make it home. -Continue morphine as needed for pain or SOB. Patietn's would like him to be as awake as possible, but also does not want him to be in pain, so she is accepting of secondary side effects. -We will continue to follow. (2) Acute AK: Involved coronary artery: unspecified coronary artery Myocardial infarction type: unspecified Qualified Code(s): I21.9 - Acute myocardial infarction, unspecified (3) On intra-aortic balloon pump assist: (4) Renal failure: Supervising Physician Co-Signing Physician Notes Chart reviewed, patient seen and examined. Collaborated with MIKA Pacheco Patient examined in room 236-patient moved out of the ICU. PE: Patient appears comfortable on O2 via nasal cannula Respiratory: Unlabored respirations CV: Regular rate Abdomen: Not distended Neuro: Unresponsive to voice or touch Agree with above note, assessment and plan as per MIKA Pacheco-will continue to follow and assist family with medical decision making History of Present Illness Reason for Consultation: Goals of care Requesting Physician: Dr. Jacob Attending Physician: Ivis Chen DO History of Present Illness This 83 year old male patient with PMH diabetes, CAD, history of heart failure with preserved EF, hypertension, history of ischemic right MCA stroke, left hemiparesis, seizure disorder, DM, status post BKA of the left lower extremity, and others, presented to the hospital a few days ago with c/o chest pain and SOB. He was found to have ST elevation and troponin 2.3. He underwent emergency cardiac catheterization and was found to have triple vessel disease. Post-cath, he was on aortic balloon pump for support. In talking with the family, they apparently did not want to transfer the patient to tertiary care given his poor candidacy for surgery. The decision was made to keep patient here and focus on comfort. At baseline, patient has been wheelchair bound since 2013 and has recently been dealing with a new diagnosis of hydrocephalus per the patient's . Palliative care is now consulted to assist with establishing goals of care. Thank you kindly for this consult. Palliative care team will follow as needed. Allergies Allergy/AdvReac Type Severity Reaction Status Date / Time morphine AdvReac Severe NAUSEA Verified 04/14/19 09:37 Home Medications Home Medications Medication Instructions Recorded Confirmed Type carvedilol [Coreg] 3.125 mg PO BID #0 tab 08/31/12 04/14/19 History insulin glargine [Lantus Solostar 12 unit SUBCUT HS #0 vial 08/31/12 04/14/19 History U-100 Insulin] insulin lispro [Humalog KwikPen 2 unit SUBCUT DIRECTED PRN #0 08/31/12 04/14/19 History Insulin] btl melatonin 3 mg PO HS #0 12/19/12 04/14/19 History aspirin [Aspirin Low Dose] 81 mg PO DAILY #0 02/27/13 04/14/19 History levetiracetam [Keppra] 750 mg PO BID #0 tab 04/11/13 04/14/19 History lorazepam [Ativan] 0.25 - 0.5 mg PO HS PRN #0 tab 04/11/13 04/14/19 History atorvastatin [Lipitor] 80 mg PO HS #0 tab 04/18/13 04/14/19 History lisinopril [Prinivil] 5 mg PO QAM #0 tab 04/22/13 04/14/19 History diphenhydramine-acetaminophen 1 tab PO HS PRN 04/14/19 04/14/19 History [Tylenol PM Extra Strength] duloxetine 30 mg PO DAILY 04/14/19 04/14/19 History furosemide [Lasix] 20 mg PO DAILY 04/14/19 04/14/19 History hydrocodone-acetaminophen 1 tab PO Q6H PRN 04/14/19 04/14/19 History metformin 1,000 mg PO DAILY 04/14/19 04/14/19 History ondansetron HCl [Zofran] 4 - 8 mg PO DIRECTED PRN 04/14/19 04/14/19 History Patient History Social History Preferred Language: Mohawk Communication Ability: Effective 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 Beliefs That Will Affect Care: None marital status: Current Living Situation: Spouse Feels Safe at Home: Yes Smoking Status: Former smoker Hx Alcohol Use: No Hx Substance Use: No Review of Systems Review of Systems: Unobtainable due to cognitive status Physical Exam Constitutional: + ill appearing; no acute distress ENMT: external ear and nose normal, oropharynx normal Respiratory: normal respiratory effort; no respiratory distress and no labored breathing nasal cannula Cardiovascular: Rate/Rhythm: regular rate and regular rhythm Extremities: no edema (of RLE) Skin: + pallor Neurologic: + confused; + not awake (lethargic) Results & Data Vital Signs (Past 12 Hours) Vital Signs Pulse BP Pulse Ox 04/16/19 06:00 70 95 04/16/19 05:04 71 95 04/16/19 05:03 74 78/45 L 93 04/16/19 05:00 72 91 04/16/19 04:28 79 64/38 L 96 04/16/19 04:00 75 92 04/16/19 03:00 75 93 04/16/19 02:00 74 91 04/16/19 01:00 74 94 04/16/19 00:00 76 92 Time Spent Midlevel 70 minutes with >50% of the time spent at bedside with patient, family, and ICU team discussing condition and GOC.
[2019-04-16] MEDS ORDERED: PROMETHAZINE HCL 6.25 MG in SODIUM CHLORIDE 0.9% 50 ML IV PRN (11:59)
--- NOTE | 2019-04-16 13:45 | Pharmacy Report ---
Pharmacy Glycemic Short Note 2 - Date of Service April 16, 2019 - Glycemic Short BSG Results (Last 24 hours): 04/15/19 04/15/19 04/16/19 16:35 20:49 07:51 Glucose POC Glucose 246 H 253 H 269 H 04/16/19 09:26 Glucose 241 H POC Glucose OUTPATIENT ANTIDIABETIC REGIMEN: * Lantus 12 units SQ Q 24hrs * Humalog SSI; ~ 2 units with meals * Metformin 1,000mg PO daily * A1c Pending for 04/15/19 ASSESSMENT: 04/16: * Patient's BSGs remained in the 200s throughout yesterday and this morning, despite 51 units of insulin over past 24 hours * Unclear the amount of PO intake yesterday and per nurse today, there has been no PO intake. In addition heparin drip was discontinued (dextrose containing fluid). Given this and significant increase in scr and current clinical status, I will not increase lantus dose this morning. I will order a very conservative lantus scale for this evening based on BSG. * Novolog scale is already dosed at a weight based stress of three. I will conservatively lower goal range before tightening CF again. Lunchtime BSG is improved at 207. 04/15 * POD # 1 a/p intra-aortic balloon pump insertion following NSTEMI (04/14). PMH includes CAD, CHF, seizure disorder, history of CVA and BKA * Pt with severe hyperglycemia prior to and after surgery. * BSGs trending downwards but still above goal range * Pt has received 31 units of insulin over the past 24hrs * 12 units of basal insulin {Lantus} * 19 units of bolus insulin {NovoLog} * BSGs ranging 178-365 mg/dl * AM fasting BSG is above goal range at 178 mg/dl with 12 units of basal on board + 11 units of correctional insulin over night. Will add the correctional insulin to the basal dose to increase dose to 23 units SQ Q24hrs in AM * Post-prnadial BSGs elevated but CF/CR tightened last night. Have not been able to filly evaluate. Will continue the same and tighten if BSGs consistently > 180 mg/dl * Heparin gtt currently running at 17 mL/hr- base solution is dextrose. May need to taper insulin regimen when this is stopped. * Goal is to maintain BSGs <200 mg/dl (ideally <150 mg/dl) to prevent post op complications PLAN FOR INPATIENT GLYCEMIC CONTROL: * Hold outpatient oral diabetes medications * Basal insulin: increase dosing * Lantus 23 units SQ daily in AM * Lantus scale this evenin units if BSG < 200; 7 units if BSG > 200 * Bolus insulin: no change * NovoLog per scale ACHS or Q6hrs while NPO * Goal Range: Low 120 mg/dL - High 150 mg/dL {slightly elevated goal range for age and ICU status} * Correction Factor: 15 mg/dL/unit * Nutritional / Prandial insulin per carb ratio of 1 unit per 6 grams CHO consumed PLAN FOR DISCHARGE: * Pending overall goals of care
--- NOTE | 2019-04-16 14:20 | Hospitalist Progress Note ---
Date of Service April 16, 2019 Assessment & Plan (1) Hypoxia: 2/2 CHF exacerbation and NSTEMI (2) CHF exacerbation: Lasix contraindicated in setting of hypotension. Cont medical management of CAD below. No escalation of hemodynamic support per patient and family wishes. (3) Sedated due to multiple medications: morphine drip yesterday to treat his chest pain, now renal failure overnight, so probably still on board to some extent. Phenergan made him drowsy when treating his nausea refractory to zofran. (4) Renal failure: Probably 2/2 ATN from prolonged hypotension. Cont current treatment efforts. Trend BMP (5) Non-STEMI (non-ST elevated myocardial infarction): Cardiac catheterization revealed multivessel disease not amenable to CABG. Family opted against complex PCI treatment and is more interested in palliative care at this point but not ready for comfort measures only. Wants to still continue treatment in effort to take him home. Cont Lovenox (switched from heparin drip to this to avoid the frequent blood draws), aspirin 81, Lipitor 80, Coreg 3.125 p.o. twice daily, lisinopril 5 mg every morning so long as blood pressure can tolerate it. Currently have held ACEI and BB. (6) Weakness of left side of body: Left upper extremity weakness present on exam. Patient reports this is secondary to history of stroke as well as severe osteoarthritis. (7) Diabetes mellitus type II, controlled: Glucose is more controlled and he remains on basal bolus insulin. Continue this during admission. (8) Seizure disorder: Continue Keppra per home regimen. (9) DVT prophylaxis: Lovenox DNR Disposition-pending clinical progression and patient wishes. For now, per palliative and needle felt making machine operator conversations with patient and family they want to continue with treatment. Comfort care measures process was stopped and morphine drip was held. Family understands poor prognosis and wants to continue with treatment only to try and get him home. Ultimate goal is keeping him comfortable, however. Ivis Chen DO [facility] Hospitalist Subjective 83 yo M s/p NSTEMI with heart cath revealing triple vessel disease. Not amenable to cath, infarct continued to evolve in ICU where he was treated medically and with an IABP. Yesterday morning he had chest pain which was treated with various narcotic trials and he was ultimately on a morphine drip for over half the day. Renal failure resulted and he has CHF. Hypotension persisted and nitro and morphine were held, also coreg and lisinopril were held and patient was not given diuretics. Although he was ordered to be "comfort care measures" at that time, the family did not want progression to a morphine drip or removal of his ongoing medical treatment, even though they were clearly advised and understood that the prognosis was poor. There was to be no escalation of care, however. He had some nausea this morning and was "goofy" to the nurses, which was expected coming off the morphine drip. He was given phenergan and fell back asleep for several hours. ROS was unobtainable during the exam as patient was sedated. Family was at bedside and reviewed the plan and prognosis with them. Goal was to keep dad comfortable but continue current medical therapy. Review of Systems Review of Systems: Unobtainable due to cognitive status Physical Exam Physical Exam: CONSTITUTIONAL: WNWD, vitals as above, generally ill- appearing, sedated, pale EYES: closed ENT: MMM RESPIRATORY: clear to auscultation bilaterally, no crackles, rales or wheezes, normal respiratory effort CARDIOVASCULAR: regular rate and rhythm, S1 and 2 heard without murmurs, gallops or rubs, no peripheral edema. GASTROINTESTINAL: soft, nondistended MUSCULOSKELETAL: general deconditioning and weakness, could not assess as patient was sedated. L BKA-extremities were cool to touch SKIN: warm and dry NEUROLOGIC: could not assess as patient was sedated Results & Data Vital Signs (Past 12 Hours) Vital Signs Temp Pulse Resp BP Pulse Ox 04/16/19 12:00 75 11 L 87/53 L 94 04/16/19 11:00 74 7 L 61/39 L 95 04/16/19 10:53 72 12 70/46 L 94 04/16/19 10:00 72 70/46 L 99 04/16/19 09:00 73 71/34 L 99 04/16/19 08:00 36.7 C 76 70/44 L 97 04/16/19 07:50 74 71/44 L 87 L 04/16/19 06:00 70 95 04/16/19 05:04 71 95 04/16/19 05:03 74 78/45 L 93 04/16/19 05:00 72 91 04/16/19 04:28 79 64/38 L 96 04/16/19 04:00 75 92 04/16/19 03:00 75 93 Laboratory Results Short CBC 04/16/19 Range/Units 09:26 WBC 11.24 H (4.8-10.8) K/uL Hgb 9.9 L (14.0-18.0) g/dL Hct 31.4 L (42-52) % Plt Count 239 (130-400) K/uL BMP 04/16/19 09:26 Sodium 135 L Potassium 4.9 Chloride 99 Carbon Dioxide 27 BUN 42 H Creatinine 2.35 H D Glucose 241 H Calcium 8.9 Medications Administered Current Inpatient Medications Acetaminophen (Tylenol) 500 mg PO HS PRN PRN Reason: Sleep Stop: 05/14/19 20:59 Last Admin: 04/15/19 19:56 Dose: 500 mg Documented by: Hydrocodone Bitart/Acetaminophen ([place] 5/325) 1 tab PO Q6H PRN PRN Reason: Pain Stop: 04/28/19 17:02 Last Admin: 04/15/19 07:36 Dose: 1 tab Documented by: Aspirin (Ecotrin Ectab) 81 mg PO DAILY NINI Stop: 05/15/19 08:59 Last Admin: 04/16/19 11:26 Dose: Not Given Documented by: Atorvastatin Calcium (Lipitor) 80 mg PO HS NINI Stop: 05/14/19 20:59 Last Admin: 04/15/19 20:57 Dose: 80 mg Documented by: Carvedilol (Coreg) 3.125 mg PO BID NINI Stop: 05/14/19 20:59 Last Admin: 04/16/19 10:19 Dose: Not Given Documented by: Dextrose (Dextrose 50%) 25 - 50 ml IV UD PRN; Protocol PRN Reason: Hypoglycemia Protocol Stop: 05/14/19 11:10 Diphenhydramine HCl (Benadryl Capsule) 25 mg PO HS PRN PRN Reason: Sleep Stop: 05/14/19 20:59 Duloxetine HCl (Cymbalta) 30 mg PO DAILY NINI Stop: 05/15/19 08:59 Last Admin: 04/16/19 11:26 Dose: Not Given Documented by: Enoxaparin Sodium (Lovenox) 90 mg SQ Q12H NINI Stop: 05/16/19 08:59 Last Admin: 04/16/19 08:41 Dose: 90 mg Documented by: Furosemide (Lasix) 20 mg PO DAILY NINI Stop: 05/14/19 17:14 Last Admin: 04/15/19 08:09 Dose: 20 mg Documented by: Glucagon (Glucagen) 1 mg SQ UD PRN; Protocol PRN Reason: Hypoglycemia Protocol Stop: 05/14/19 11:10 Glucose (Dex4 Glucose) 4 - 8 tabs PO UD PRN; Protocol PRN Reason: Hypoglycemia Protocol Stop: 05/14/19 11:10 Glucose (Glucose 40%) 15 - 30 gm PO UD PRN; Protocol PRN Reason: Hypoglycemia Protocol Stop: 05/14/19 11:10 Promethazine HCl 6.25 mg/ (Sodium Chloride) 50.25 mls @ 201 mls/hr IV Q6H PRN PRN Reason: Nausea And Vomiting Stop: 05/16/19 11:58 Last Admin: 04/16/19 12:17 Dose: 201 mls/hr Documented by: Insulin Aspart (Novolog Flexpen) 0 units SC ACHS [facility]; Protocol Stop: 05/14/19 12:59 Last Admin: 04/16/19 12:18 Dose: 4 units Documented by: Insulin Glargine (Lantus Solostar Pen) 23 units SQ QAM NINI; Protocol Stop: 05/15/19 08:59 Last Admin: 04/16/19 11:08 Dose: 23 units Documented by: Insulin Glargine (Lantus Solostar Pen) 0 units SQ HS NINI; Protocol Stop: 04/16/19 21:01 Levetiracetam (Keppra) 750 mg PO BID [facility] Stop: 05/14/19 20:59 Last Admin: 04/16/19 11:26 Dose: Not Given Documented by: Lisinopril (Zestril) 5 mg PO QAM INNI Stop: 05/15/19 08:59 Last Admin: 04/15/19 08:12 Dose: 5 mg Documented by: Lorazepam (Ativan) 0.25 - 0.5 mg PO HS PRN PRN Reason: Sleep Stop: 05/14/19 12:20 Last Admin: 04/15/19 20:58 Dose: 0.25 mg Documented by: Miscellaneous (Carbohydrates For Hypoglycemia) 15 - 30 gm PO UD PRN PRN Reason: Hypoglycemia Protocol Stop: 05/14/19 11:10 Miscellaneous Information (Consult Glycemic Management Pharmacy) 1 ea N/A UD PRN PRN Reason: Consult Stop: 05/14/19 18:01 Morphine Sulfate (Morphine Sulfate) 2 mg IV Q2H PRN PRN Reason: Moderate Pain (4,5,6) Stop: 04/30/19 07:38 Morphine Sulfate (Morphine Sulfate) 4 mg IV Q2H PRN PRN Reason: Severe Pain (7,8,9,10) Stop: 04/30/19 07:38 Nitroglycerin (Nitrostat) 0.4 mg SL PRN PRN PRN Reason: CHEST PAIN Stop: 05/15/19 08:30 Last Admin: 04/15/19 09:20 Dose: 0.4 mg Documented by: Ondansetron HCl (Zofran Odt) 4 mg PO Q6H PRN PRN Reason: Nausea Stop: 05/15/19 16:27 Last Admin: 04/16/19 10:01 Dose: 4 mg Documented by:
[2019-04-16] MEDS ORDERED: LORazepam 0.5 MG/1 ML VIAL IV PRN ×2 (20:27→20:34)
[2019-04-16] MEDS ORDERED: INSULIN GLARGINE SOLOSTAR 100 UNITS/ML 3 ML PEN SQ SCH (21:00)
--- NOTE | 2019-04-16 21:50 | Communication Note ---
Date of Service: April 16, 2019 Patient family requesting for institution of full comfort measures.
[2019-04-16] MEDS ORDERED: LORazepam 1 MG/2 ML VIAL IV PRN (21:53)
[2019-04-16] MEDS ORDERED: HYDROmorphone INJ 0.5 MG/0.5 ML SYR IV PRN (21:55)
[2019-04-16] MEDS ORDERED: PROMETHAZINE HCL 12.5 MG in SODIUM CHLORIDE 0.9% 50 ML IV PRN (21:55)
[2019-04-16] MEDS ORDERED: SCOPOLAMINE 1.5 MG TDSY TD PRN (23:36)
[2019-04-17] MEDS ORDERED: CHECK SCOPOLAMINE PATCH PLACEMENT SCH
[2019-04-17] MEDS ORDERED: ATROPINE SULFATE 1% OP SOLN 2 ML BTL SL PRN (01:33)
[2019-04-17] MEDS ORDERED: HYDROmorphone INJ 1 MG/ML SYRINGE IV STA (01:33)
[2019-04-17] MEDS ORDERED: HYDROmorphone INJ 1 MG/ML SYRINGE IV PRN (01:41)
--- NOTE | 2019-04-17 03:32 | Death Summary ---
Date of Service April 17, 2019 Pronouncement Note Date and Time of Date of : 04/17/19 Time of : 03:30 PCOD Preliminary cause of : Myocardial Infarction Contributing Factors (1) Hypoxia: (2) CHF exacerbation: (3) Sedated due to multiple medications: (4) Renal failure: (5) Non-STEMI (non-ST elevated myocardial infarction): (6) Weakness of left side of body: (7) Diabetes mellitus type II, controlled: (8) Seizure disorder: (9) DVT prophylaxis: Summary Additional details: Discharge summary to be accomplished by Dr. Chen. Additional Data Confirmation of : no pulse, no respirations, no heart sounds and pupils fixed and dilated Family: not available Attending/PCP notified?: Yes Attending physician: Ivis Chen, DO
--- NOTE | 2019-04-17 06:51 | Discharge Summary ---
Date of Service April 17, 2019 Admission HPI Per Admitting Provider HISTORY OF PRESENT ILLNESS: This is an 83-year-old male with past medical history significant for diabetes, CAD, history of heart failure with preserved EF, hypertension, history of ischemic right MCA stroke, left hemiparesis, seizure disorder, diabetes - insulin requiring, status post BKA of the left lower extremity, history of tobacco abuse, currently wheelchair bound since 2012, on a hospital bed at home. For the last few nights, he is awaking up with shortness of breath and complained of chest pain and left shoulder pain. He also has left shoulder arthritis. He was requiring his lorazepam, Nyquil and Vicodin to sleep. It is going on for the last few nights and the last night was worse, so he came to the hospital and found to have non-ST elevated WI with a troponin of 2.3. He is status post emergent cardiac cath, which showed severe triple vessel disease. The patient is thought to be not a good candidate for CABG. He is status post intraaortic balloon pump. Currently, since the procedure, his symptoms are much improved. He is feeling better. The plan is to monitor in the ICU and the family to decide for either medical management or transfer to tertiary care center for high-risk PCI. The patient's family seems to keep him here, plan to consult palliative care . As per interventional cardiology if patient stays here to slowly taper off the intraaortic balloon pump and maybe probably requires nitroglycerin paste. Currently resting comfortably and hemodynamically stable. He says he is feeling much better. Denies any shortness of breath now. Denies any chest pain now. Vision is okay. Denies any earaches or sore throat or cough. No recent fever or chills. No abdominal pain. Appetite is good. No dysphagia. Normal bowel and bladder movements. Admission Exam Per Admitting Provider PHYSICAL EXAMINATION: GENERAL: The patient is of moderate built, currently not in acute distress. VITAL SIGNS: Temperature 36.5, pulse 88, respiratory rate 14, blood pressure 105/58, oxygen 97% on 3 liters. HEENT: No pallor, no icterus. NECK: No JVD, no neck masses, no carotid bruits. CARDIOVASCULAR: S1, S2 heard, regular rate and rhythm, no murmur, no gallop. RESPIRATORY SYSTEM: Normal AP diameter. No accessory muscle use. No wheezing, no crackles. ABDOMEN: Soft, bowel sounds present, nontender. No distention. CENTRAL NERVOUS SYSTEM: Alert and awake and oriented. Obeys simple commands. EXTREMITIES: Status post left below-knee amputation. No edema, no erythema seen. Right wrist cardiac cath site clean and left groin IABP site clean. Principal Diagnosis NSTEMI Discharge Data Allergies Allergy/AdvReac Type Severity Reaction Status Date / Time morphine AdvReac Severe NAUSEA Verified 04/14/19 09:37 Consultations 04/14/19 10:10 ED Decision to Admit Stat 04/14/19 11:02 Consult Manufacturing Design Engineer Routine 04/14/19 11:04 Consult Palliative Care Routine 04/14/19 11:06 Consult Case Management - Discharge Planning Routine Consult Manufacturing Design Engineer Routine 04/14/19 12:35 Consult Cardiology Routine 04/14/19 18:02 Consult Cardiology Routine Procedures Performed Operation Date: 04/14/19 09:40 Actual Procedures p Cath, Left with Cors and Vent - Pardeep Bentley MD s Cineradiography w/Routine Exam - Pardeep Bentley MD s Intra-Aortic Balloon Insertion - Pardeep Bentley MD s Ultrasound Vascular Access - Pardeep Bentley MD Ordered Studies 04/14/19 09:39 CL Cath Imgs for PACS use only Stat Hospital Course (1) Non-STEMI (non-ST elevated myocardial infarction): (2) Hypoxia: (3) CHF exacerbation: (4) Renal failure: 83-year-old man with history of CAD and peripheral vascular disease presented to the ER with chest pain and EKG changes. Lab work-up revealed an elevated troponin at 2.31 and he was diagnosed with an NSTEMI. He was taken to the [facility] immediately where he was found to have triple-vessel disease. CABG was not recommended and complex PCI was offered to the family but they declined. An intra-aortic balloon pump was placed and he was put in the ICU. Approximately half a day later the IABP was removed and he subsequently had chest pain. The double end tenoner operator and family discussed the prognosis which was poor and the patient was placed on a morphine drip after various different pain control efforts were unsuccessful. He had persistent hypotension and nitro and morphine were then held. Coreg and lisinopril were also held and the patient was not given diuretics as a result of this low blood pressure. He was then seen to be in renal failure on labwork the next day, likely secondary to a combination of contrast given during the catheterization and ATN secondary to persistent hypotension. Hypoxia was present with imaging and a clinical picture consistent with CHF exacerbation. The family decided not to escalate care and he was transferred to PCU. His medications, lab work orders, and vitals were continued with a goal of palliation. Palliative care was consulted and assisted with goals of care. Later that night he was transition to comfort care measures only and was given Ativan and Dilaudid for comfort. He later , which was expected. The corrections corporal performed the exam, as this occurred overnight. See exam for discharge exam findings. Total Time Total Time Spent Total Time Spent (In Minutes): 60 Discharge Plan Discharge Items Patient Disposition: Reason For Visit: SOB, CHEST DISCOMFORT Follow-up/Referrals: María Elena Wolf MD [Primary Care Provider] - Stand-Alone Forms: [facility] Admission Data Admit Date/Time: 04/14/19 12:26 Other DC Date/Time DO NOT enter until pt leaves facility: 04/17/19 03:30
--- NOTE | 2019-04-24 05:21 | Coding Query ---
CONGESTIVE HEART FAILURE To Promote full compliance with coding requirements relating to patient care, physician participation is requested in all cases of white washer uncertainty. Please assist us with the following questions. A diagnosis of Congestive Heart Failure is documented in the patient's medical record. To accurately code this diagnosis and to compare patient severity, we ask that you specify the type of heart failure by placing an X within the parenthesis (x). Progress notes document CHF [place] Class II . Thanks for your help! Thomas Hadley, SPINNING AND WINDING SUPERVISOR [employer] SYSTOLIC HEART FAILURE ( ) Acute ( ) Chronic ( ) Acute on Chronic ( ) Rheumatic ( x) Unknown DIASTOLIC HEART FAILURE ( ) Acute ( ) Chronic ( ) Acute on Chronic ( ) Rheumatic ( x) Unknown COMBINED SYSTOLIC AND DIASTOLIC HEART FAILURE ( ) Acute ( ) Chronic ( ) Acute on Chronic ( ) Rheumatic (x ) Unknown Was the CHF Present On Admission? Please check the appropriate box: ( ) Present on Admission ( x) Not Present On Admission ( ) Clinically undetermined The patient had an acute myocardial infarction and was quickly transitioned to comfort care measures. No repeat echocardiogram was performed to accurately give the ejection fraction, however, heart failure exacerbation symptoms were present in the following days. [place]
== END 2019-04-17 03:30 | disposition expired | DRG 270 ==
LOC: ED 08:33 → CC 09:59 → 1E 09:59 → SUATTDRO 12:26 → 1E 12:26 → 2S 04-16 08:17